=== PATIENT | male | born 1950 | race Caucasian/White ===

== ENCOUNTER → 2020-02-17 11:16 | Outpatient (BNVA) | payer OTHER, MEDICARE, SELFPAY | PROVIDERS: Visit Provider Nurse Practitioner Family | DX: N41.0 Acute prostatitis (principal); M54.9 Dorsalgia, unspecified | CPT/HCPCS: 81000 ==

== ENCOUNTER 2020-02-25 18:08 | Inpatient (IN) | payer OTHER, MEDICARE, SELFPAY ==
[2020-02-25 18:14] VITALS: BMI 19.8
[2020-02-25 18:20] VITALS: BP 133/97; PULSE 102; RESP 18; TEMP 38.4; O2SAT 95
--- NOTE | 2020-02-25 18:31 | XRR_ITS ---
PROCEDURE INFORMATION: Exam: XR Chest, 1 View Exam date and time: 02/25/2020 6:52 PM Age: 69 years old Clinical indication: Cough and fever; Additional info: Fever, cough TECHNIQUE: Imaging protocol: XR of the chest Views: 1 view. COMPARISON: No relevant prior studies available. FINDINGS: Lungs: Hyperinflation. Pleural space: Areas of pleural parenchymal scarring or atelectasis in the lower lungs. No large volume effusion. Heart/Mediastinum: Normal heart size. Vasculature: Tortuous ectatic partially calcified thoracic aorta. Bones/joints: Unremarkable. Soft tissues: Likely skin fold overlies the upper right chest on image 1 of 2. XR/XR chest 1V portable [id number] IMPRESSION: 1. Areas of pleural parenchymal scarring lower lungs. 2. Hyperinflation. 3. Dilated thoracic aorta. See dictation of recent CT chest.
[2020-02-25 18:32] VITALS: O2SAT 95
[2020-02-25] MEDS: sodium chloride 0.9% 1,000 ML 999 ML IV (18:53)
[2020-02-25 18:54] VITALS: BP 133/86; PULSE 103; RESP 16; O2SAT 96
[2020-02-25 18:57] LABS: Basophils # 0.1 10^3/uL (0.0-0.1); Basophils % 0.4 %; Eosinophils % 0.1 %; Hematocrit 40.4 % (42.0-52.0); Lymphocytes # 2.5 10^3/uL (0.8-4.8); Lymphocytes % 16.8 %; Mean Corpuscular HGB Conc 34.7 g/dL (30.0-36.0); Mean Corpuscular Hemoglobin 30.2 pg (28.0-34.0); Mean Corpuscular Volume 87.3 fL (80-94); Mean Platelet Volume 8.7 fL (7.4-10.4); Monocytes % 6.7 %; Neutrophils # 11.1 10^3/uL (1.8-7.7); Neutrophils % 74.1 %; Nucleated Red Blood Cells % 0 %; Platelet Count 509 10^3/cmm (130-400); Red Blood Count 4.63 10^6/uL (4.1-5.3); Red Cell Distribution Width 14.8 % (12.1-15.1)
[2020-02-25 19:04] LABS: Add Urine Microscopic? YES; Bilirubin Urine Neg (NEGATIVE); Blood Urine 2+ (Negative); Glucose Urine UA Norm (Normal); Ketones Urine 1+ (Negative); Leukocyte Esterase Urine Negative (Negative); Nitrate Urine Negative (Negative); Protein Urine Trace (Negative); Urine Appearance SL Hazy (CLEAR); Urine Color Yellow (Yellow); Urobilinogen Urine Norm (Negative); pH Urine 5 (5-7)
[2020-02-25 19:10] LABS: Bacteria Urine 1+; Mucus Urine 2+; Squamous Epithelial Cell Urine RARE (0-5)
[2020-02-25 19:11] LABS: Add Urine Culture? No
[2020-02-25 19:12] LABS: Lactate (Lactic Acid level) 1.6 mmol/L (0.5-2.2)
[2020-02-25 19:20] LABS: Procalcitonin 0.59 ng/mL (0-0.5)
[2020-02-25 19:32] LABS: Alanine Aminotransferase 138 U/L (0-41); Albumin Level 4.1 g/dL (3.5-5.2); Alkaline Phosphatase 114 IU/L (40-130); Anion Gap 21.2 (5-19); Aspartate Amino Transferase 77 U/L (0-40); Blood Urea Nitrogen 15 mg/dL (8-23); C Reactive Protein 80.6 mg/L (0.0-4.9); Calcium 8.8 mg/dL (8.5-10.5); Carbon Dioxide 20 mmol/L (22-29); Chloride 92 mmol/L (98-107); Creatine Phosphokinase 26 U/L (39-308); Globulin 3.3 g/dL (1.3-4.6); Glomerular Filtration Rate 66.4 mL/min (90-130); Glucose 140 mg/dL (65-115); Osmolality Calculated 267 mOsm/kg (285-295); Potassium 4.2 mmol/L (3.5-5.1); Sodium 129 mmol/L (136-145); Total Bilirubin 0.6 mg/dL (0.15-1.2); Total Protein 7.4 g/dL (6.6-8.7)
--- NOTE | 2020-02-25 19:33 | CTR_ITS ---
PROCEDURE INFORMATION: Exam: CT Chest With Contrast Exam date and time: 02/25/2020 8:11 PM Age: 69 years old Clinical indication: Patient HX: Weight loss with fever and loss of appetite; Additional info: Fever, mass TECHNIQUE: Imaging protocol: Computed tomography of the chest with intravenous contrast. Radiation optimization: All CT scans at this facility use at least one of these dose optimization techniques: automated exposure control; mA and/or kV adjustment per patient size (includes targeted exams where dose is matched to clinical indication); or iterative reconstruction. Contrast material: OMNI 300; Contrast volume: 95 ml; Contrast route: INTRAVENOUS (IV); COMPARISON: CR XR chest 1V portable [id number] 02/25/2020 6:40 PM RADIATION DOSE METRICS: Total DLP (mGy-cm): 944.32 FINDINGS: Lungs: Mild centrilobular emphysema. COPD/chronic bronchitis. No visible active interstitial or alveolar airspace disease. Mild parenchymal scar lung bases. Pleural space: Unremarkable. No pneumothorax. No pleural effusion. Heart: Unremarkable. No cardiomegaly. No pericardial effusion. Aorta: Mild fusiform aneurysmal dilatation of the aortic arch maximum AP diameter of the lumen 44 mm. No visible intimal flap or dissection. Mild arterial sclerosis. Lymph nodes: Unremarkable. No enlarged lymph nodes. Bones/joints: Degenerative disease and degenerative disc disease of the spine. No visible osteolytic or osteoblastic destructive process. No visible acute osseous abnormality. Soft tissues: Unremarkable. IMPRESSION: 1. No visible evidence of acute cardiopulmonary/cardiothoracic pathologic process. 2. Nonurgent, nonemergent, chronic, and age related findings as detailed in text above. PROCEDURE INFORMATION: Exam: CT Abdomen And Pelvis With Contrast Exam date and time: 02/25/2020 8:11 PM Age: 69 years old Clinical indication: Patient HX: Weight loss with fever and loss of appetite; Additional info: Fever, mass TECHNIQUE: Imaging protocol: Computed tomography of the abdomen and pelvis with intravenous contrast. Radiation optimization: All CT scans at this facility use at least one of these dose optimization techniques: automated exposure control; mA and/or kV adjustment per patient size (includes targeted exams where dose is matched to clinical indication); or iterative reconstruction. Contrast material: OMNI 300; Contrast volume: 95 ml; Contrast route: INTRAVENOUS (IV); COMPARISON: CR XR chest 1V portable [id number] 02/25/2020 6:40 PM RADIATION DOSE METRICS: Total DLP (mGy-cm): 944.32 FINDINGS: Liver: Several small hepatic cysts the largest measuring approximately 12 mm. Also suspected cavernous hemangioma inferior segment right hepatic lobe measuring 30 mm in maximum diameter. Confirmation could be performed with either three-phase computed tomography of the liver or MRI of the liver. Gallbladder and bile ducts: Normal. No calcified stones. No ductal dilation. Pancreas: Normal. No ductal dilation. 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 Please review past surgical history. Adrenals: Normal. No mass. Kidneys and ureters: Simple renal cortical cysts the largest inferior pole right kidney maximum AP diameter 62 mm. Small simple hemorrhagic cyst left kidney. No follow-up recommended. No follow-up recommended. No hydronephrosis or perinephric fluid. Stomach and bowel: Diverticulosis coli, primarily the sigmoid colon, without evidence for diverticulitis. Anastomotic bowel sutures and surgical clips right lower quadrant. Suspected partial right hemicolectomy. Nonobstructive bowel pattern. No visible adynamic or reactive ileus. Appendix: No evidence of appendicitis. Intraperitoneal space: Unremarkable. No free air. No significant fluid collection. Vasculature: The abdominal aorta is nonaneurysmal. Moderate arterial sclerotic disease. Lymph nodes: Unremarkable. No enlarged lymph nodes. Bladder: Unremarkable as visualized. Reproductive: Prostate hypertrophy. Bones/joints: Degenerative disc disease of the spine most advanced L4/L5 and L5/S1. Facet arthrosis. No visible acute osseous abnormality. No visible osteolytic or osteoblastic destructive process. Scoliosis. Soft tissues: Unremarkable. CT/CT chest abd pel w con* IMPRESSION: 1. No visible evidence of acute abdominal or pelvic pathologic process. 2. Suspected cavernous hemangioma inferior segment right hepatic lobe measuring 30 mm in maximum diameter. Confirmation could be performed with either three-phase computed tomography of the liver or MRI of the liver. 3. Simple renal cortical cysts. No follow-up recommended. 4. Diverticulosis coli without evidence for diverticulitis. 5. Other nonurgent, nonemergent, chronic, and age related findings as detailed in text above. COMMENTS: Consistent with the [employer]'s Incidental Findings Committee white paper (J Am Shaneka Radiol 2018): Any incidental renal lesion less than 1.0 cm or classified as too small to characterize, or any incidental cystic renal lesion characterized as simple-appearing, is likely benign. No follow-up imaging is recommended for these lesions per consensus recommendations based on imaging criteria. Radiation Dose CTDIVOL = (mGy): DLP = 944.32~944.32 (mGy-cm)
[2020-02-25] MEDS: iohexol 300 mg/mL 100 mL Btl IV (20:55)
[2020-02-25 21:16] VITALS: BP 112/78; PULSE 104; RESP 18; O2SAT 98
[2020-02-25 22:05] VITALS: BP 131/80; PULSE 105; RESP 22; O2SAT 96
[2020-02-25] MEDS: acetaminophen 500 mg Tablet 1000 MG PO (22:18)
--- NOTE | 2020-02-25 22:49 | PM.HP ---
Providers/Chief Complaint Chief Complaint: fever/cough History of Present Illness Nick Alatorre is a 69 year old male carries history of hypopharyngeal mass, thyroid nodule, degenerative joint disease of cervical spine came in with chief complaint of fever and night sweats. Patient lives alone, smokes pot occasionally, he was in his usual state of health until few weeks ago he started experiencing fever, chills, night sweats, he has lost 15 pounds in 3 weeks, he has been seen in urgent care twice, at the urgent care he was afebrile, urinalysis showed mild pyuria and he was started on antibiotics for possible prostatitis, his symptoms persisted, on second present to the urgent care he was started on Bactrim, he ran out of Bactrim prescription & [facility] prescribed c[facility]fl[facility]. Unfortunately his symptoms persistent, sometimes at night he has to wake up to change his clothes, he is endorsing anorexia, weight loss, profuse sweating. He is a , has no family, lives alone. He is turning that he was biopsied for his thyroid and submandibular mass, he was told that everything was benign, he has submandibular duct stone as well. He has not been noticing any dysphagia, orthopnea, PND, shortness of breath, chest pain, headache or dysuria. He has chronic neck pain which he thinks has not aggravated from his baseline Diagnosis in the urine revealed fever of 101.1, tachycardia, tachypnea, leukocytosis, normal lactic acid, CT chest abdomen pelvis did not reveal any acute pathology, I have requested CT neck and head Will rule out COVID Will obtain lumbar puncture, Dr. Avery obtained CSF studies in the ER, Review of Systems Const: Reports: fever(s), chills, body aches, change in appetite, change in weight, fatigue, malaise, night sweats, diaphoresis and change in sleep pattern; Denies: snoring Eyes: Reports: eye redness ENMT: Denies: throat pain, mouth pain or oral sores Card: Denies: chest pain or swelling of feet/ankles Resp: Denies: dyspnea GI: Denies: abdominal pain, nausea or vomiting : Denies: flank pain or urinary frequency Musc: Reports: neck pain Skin/Breast: Denies: rash Neuro: Denies: headache(s) Psych: Denies: anxiety Endo: Denies: polyuria Mateusz/Lymph: Denies: easy bruising All/Imm: Denies: urticaria Medications/Allergies Home Medications Medication Instructions Recorded Confirmed Last Taken Type aspirin 325 mg tablet 325 mg PO BID PRN 02/17/20 02/25/20 Unknown History sulfamethoxazole 800 1 tab PO BID 14 Days #28 tab 02/17/20 02/24/20 Unknown Rx mg-trimethoprim 160 mg tablet Allergies Allergy/AdvReac Type Severity Reaction Status Date / Time No Known Allergies Allergy Verified 02/24/20 09:56 PFSH Acute PFSH: Medical History (Updated 02/25/20 @ 23:42 by Marjorie Andrade MD) Aortic aneurysm 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 Arthritis COPD (chronic obstructive pulmonary disease) Degenerative disc disease C3-C6 spondylitic changes Hypopharyngeal mass Right lingular 5 mm cystic nodule near superior hypopharynx Salivary gland calculus Tetrahydrocannabinol (THC) use disorder, mild, abuse Thyroid nodule 9 and 11 mm thyroid nodules Surgical History (Updated 02/25/20 @ 23:53 by Marjorie Andrade MD) H/O removal of cyst History of appendectomy S/P thyroid biopsy Family History (Updated 02/25/20 @ 23:42 by Marjorie Andrade MD) Denies family history of CAD (coronary artery disease) Chronic kidney disease (CKD) Cancer Social History (Updated 02/25/20 @ 23:43 by Marjorie Andrade MD) Smoking and tobacco status: never smoked Alcohol intake: never Substance/Drug Use: current Substance/Drug use type: Marijuana Vitals/I&O/Wt Last Vital Signs Temp 101.1 F H 02/25/20 18:20 Pulse 105 H 02/25/20 22:05 Resp 22 H 02/25/20 22:05 BP 131/80 02/25/20 22:05 Pulse Ox 96 02/25/20 22:05 02/25/20 02/25/20 02/25/20 06:59 14:59 22:59 Intake Total 1000 / 1000 Balance 1000 / 1000 Weight last 48 hrs Weight 62.596 kg Physical Exam Narrative: EXAM NARRATIVE: Head to toe examination Patient laying comfortably in his bed Experiencing profuse diaphoresis Hyperemic conjunctivo-bilaterally No Kernig's or Brudzinski sign No meningeal sign Right submandibular cyst, nontender Thyroid nodule, nontender S1, S2 sinus tachycardia no sign of heart failure Abdomen soft nontender nondistended, Lower extremity no signs of edema gangrene ulcer Neurologically nonfocal exam Appropriate mood and affect EOMI, PERRLA AOx3 Data : 02/25/20 18:48 02/25/20 18:48 Micro: Microbiology 02/25/20 18:50 Blood Culture - Preliminary Blood SPECIMEN COLLECTED 02/25/20 18:48 Blood Culture - Preliminary Blood SPECIMEN COLLECTED A&P Assessment and plan (1) Sepsis: Status: Acute (2) Night sweats: Status: Acute (3) Anorexia: Status: Acute (4) Unintentional weight loss: Status: Acute (5) Hepatic cyst: Status: Acute Additional A&P Information Sepsis Source unidentified Previous history of hypopharyngeal mass Patient has 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 Anorexia, fever, night sweats, weight loss We will request records from [place] for thyroid and hypopharyngeal mass biopsy I am obtaining CT neck and CT head before doing lumbar puncture We will start him on broad-spectrum antibiotics and rule out covid Normal saline fluid resuscitation Will admit to [facility] Hepatic cyst I would not obtain MRI at this point Patient has 2 dogs at home, my differential would include hemangioma versus hydatid cyst Diverticulosis without diverticulitis No recent diarrhea or bright bleed per rectum Abdomen is soft Marijuana abuse Patient was counseled regarding complications and side effects of marijuana abuse Full code Regular diet DVT prophylaxis to be started about 8 to 10 hours after lumbar puncture Attestations Medical Necessity Statement*: Anticipating stay in the hospital cross more than 2 midnights currently needs broad-spectrum antibiotics for sepsis, Time Spent in Patient Care: (>than 50% of time spent in counselling and/or direct pt care on unit). 60mins Coding Level of Care Code Acute Neuropsychology Medical Consultant for Chg Fwd Diagnoses Sepsis A41.9 Night sweats R61 Anorexia R63.0 Unintentional weight loss R63.4 Hepatic cyst K76.89
--- NOTE | 2020-02-25 23:06 | CTR_ITS ---
PROCEDURE INFORMATION: Exam: CT Neck With Contrast Exam date and time: 02/25/2020 11:08 PM Age: 69 years old Clinical indication: Abnormal findings; Abnormal radiologic study of neck; Additional info: Hypopharyngeal mass TECHNIQUE: Imaging protocol: Computed tomography images of the neck with intravenous contrast. Radiation optimization: All CT scans at this facility use at least one of these dose optimization techniques: automated exposure control; mA and/or kV adjustment per patient size (includes targeted exams where dose is matched to clinical indication); or iterative reconstruction. Contrast material: VISI; Contrast volume: 95 ml; Contrast route: INTRAVENOUS (IV); COMPARISON: CT neck w con* [id number] 07/25/2019 8:49 AM RADIATION DOSE METRICS: Total DLP (mGy-cm): 616.98 FINDINGS: Brain: Potential left cerebellar hemisphere venous angioma/venous malformation. Nasopharynx: Unremarkable. Oropharynx: Markedly enlarged lingual tonsils. The right lingual tonsil measures approximately 27 mm x 23 mm and merges with the left which measures 22 mm x 19 mm. Concern for lingual carcinoma. [place] and pharyngeal tonsils appear unremarkable. Hypopharynx: Unremarkable. Larynx: Epiglottis appears normal. Larynx appears normal. Retropharyngeal space: Unremarkable. Submandibular/Parotid glands: Parotid and submandibular glands appear unremarkable. Thyroid: Visualized portions of the thyroid normal. Lymph nodes: Currently no visible evidence for active lymphadenopathy. Trachea: Visualized trachea is unremarkable. Lungs: Mild centrilobular emphysema. Small approximately 4 mm subpleural pulmonary nodule right upper lobe series 3, image 88. Bones/joints: Advanced degenerative disease and degenerative disc disease of the cervical spine again evident. Vasculature: Stable fusiform aneurysmal dilatation of the thoracic aortic arch. No visible intimal flap or dissection. Moderate arterial sclerotic disease. No visible carotid stenosis. Soft tissues: Age-appropriate. CT/CT neck w con* [id number] IMPRESSION: 1. Markedly enlarged lingual tonsils and cannot exclude lingual cancer. Recommend direct visualization. 2. Potential left cerebellar hemisphere venous angioma/venous malformation. 3. Mild centrilobular emphysema. 4. Small right upper lobe 4 mm subpleural pulmonary nodule. For patients at low risk (minimal or absent history of smoking and of other known risk factors), no routine follow-up is indicated. For patients at high risk (history of smoking or of other known risk factors), consider optional CT at 12 months. (Joaquina et al., Fleischner Society, 2017). Radiation Dose CTDIVOL = (mGy): DLP = 616.98 (mGy-cm)
--- NOTE | 2020-02-25 23:25 | CTR_ITS ---
PROCEDURE INFORMATION: Exam: CT Head Without Contrast Exam date and time: 02/25/2020 11:41 PM Age: 69 years old Clinical indication: Pain; Headache not specified TECHNIQUE: Imaging protocol: Computed tomography of the head without contrast. Radiation optimization: All CT scans at this facility use at least one of these dose optimization techniques: automated exposure control; mA and/or kV adjustment per patient size (includes targeted exams where dose is matched to clinical indication); or iterative reconstruction. COMPARISON: No relevant prior studies available. RADIATION DOSE METRICS: Total DLP (mGy-cm): 852.62 FINDINGS: Brain: Potential petechial hemorrhage left cerebellar hemisphere measuring a maximum diameter 6 mm. No associated surrounding edema visible. Bilateral cerebral hemisphere multifocal areas of demyelination. Also findings suggesting associated small vessel ischemic disease. Cerebral atrophic changes greater than that anticipated for patient's chronological age. Ventricles: No ventriculomegaly. Bones/joints: Unremarkable. No acute fracture. Sinuses: Visualized sinuses are unremarkable. No fluid levels. Mastoid air cells: Visualized mastoid air cells are well aerated. Vasculature: Cerebral arterial sclerosis. Soft tissues: Unremarkable. CT/CT head wo con* [id number] IMPRESSION: 1. Potential petechial hemorrhage left cerebellar hemisphere. 2. Bilateral cerebral hemisphere multifocal areas of demyelination. 3. Suspected small vessel ischemic disease. 4. Cerebral atrophic changes greater than that anticipated for patient's chronological age. 5. Recommend MRI of the brain for follow-up evaluation. Radiation Dose CTDIVOL = (mGy): DLP = 852.62 (mGy-cm)
[2020-02-25] MEDS: iodixanol 320 mg/mL 100mL Btl IV (23:47)
[2020-02-26] VITALS (70 sets, daily range): BP systolic 102–128; BP diastolic 68–87; PULSE 88–128; RESP 7–36; TEMP 37.1–38.3; O2SAT 4–97
[2020-02-26] MEDS: midazolam 1 mg/mL INJ 2 mL 2 MG IVP (00:05)
[2020-02-26] MEDS: lidocaine 1% INJ 20 mL INJECTION (00:11)
--- NOTE | 2020-02-26 01:07 | PM.EVENT ---
Event Note Event Note: CT head is showing multifocal areas of demyelination with possible petechial hemorrhage of left cerebellar area Patient is status post lumbar puncture done by Dr. Avery in the ER Contraindicated anticoagulation until hemorrhage ruled out, will obtain MRI in the morning CT neck is showing increased dimension of lingual tonsils My concern for noninfectious cause of this febrile episode is high considering increased dimensions of lingual tonsils, with B-cell symptom, will follow up with biopsy results
[2020-02-26 01:18] LABS: CSF Mononuclear # 0.001 10^3/uL (50-90); Mononuclear WBC CSF % 50 % (50-90); Polynuclear Cells ,CSF # 0.001 10^3/uL (0-10); Polynuclear WBC CSF % 50 % (0-10); Red Blood Cell CSF 0 10^3/uL (0-0); White Blood Cell CSF 2 /uL (0-5)
[2020-02-26 01:22] LABS: Appearance CSF CLEAR (CLEAR); Color CSF COLORLESS (COLORLESS)
[2020-02-26 01:23] LABS: Pathology Referral Yes
[2020-02-26 01:30] LABS: Glucose CSF 72 mg/dL (40-70); Total Protein CSF 32 mg/dL (15-45)
--- NOTE | 2020-02-26 03:08 | PC.PHAR ---
Vancomycin is dosed at 1500mg IVPB ever 24 hours to produce a predicted trough level of 14.54 (population based pharmacokinetic analysis). A trough level has been ordered from the lab to be obtained before the fourth dose to confirm and adjust if needed. Zosyn is dosed at 3.375gm IVPB ever 8 hours based on creatinine clearance of 61.7112. Each dose is to be infused over four hours per extended infusion protocol.
[2020-02-26] MEDS: piperacillin-tazobactam 3.375 GM in sodium chloride 0.9% (plus) 50 ML IV ×3 (03:45→18:31)
[2020-02-26] MEDS: sodium chloride 0.9% 1,000 ML 75 ML IV ×2 (03:45→16:43)
[2020-02-26] MEDS: acetaminophen 325 mg Tablet 650 MG PO ×3 (03:54→19:55)
--- NOTE | 2020-02-26 03:57 | PC.NURSE ---
fever/chills pt started chilling, temp checked 100.9 oral. 650mg tylenol given at this time.
[2020-02-26 04:56] LABS: Basophils # 0.1 10^3/uL (0.0-0.1); Basophils % 0.4 %; Eosinophils % 0.1 %; Hematocrit 39.2 % (42.0-52.0); Hemoglobin 13.6 g/dL (11.7-16.6); Lymphocytes % 24.8 %; Mean Corpuscular HGB Conc 34.7 g/dL (30.0-36.0); Mean Corpuscular Hemoglobin 31.1 pg (28.0-34.0); Mean Corpuscular Volume 89.5 fL (80-94); Mean Platelet Volume 9.7 fL (7.4-10.4); Monocytes % 6.1 %; Neutrophils # 10.7 10^3/uL (1.8-7.7); Neutrophils % 66.5 %; Nucleated Red Blood Cells % 0 %; Platelet Count 487 10^3/cmm (130-400); Red Blood Count 4.38 10^6/uL (4.1-5.3); Red Cell Distribution Width 14.9 % (12.1-15.1)
[2020-02-26 05:20] LABS: Alanine Aminotransferase 121 U/L (0-41); Albumin Level 3.5 g/dL (3.5-5.2); Alkaline Phosphatase 111 IU/L (40-130); Anion Gap 20.4 (5-19); Aspartate Amino Transferase 62 U/L (0-40); Blood Urea Nitrogen 14 mg/dL (8-23); Calcium 8.3 mg/dL (8.5-10.5); Carbon Dioxide 21 mmol/L (22-29); Chloride 94 mmol/L (98-107); Globulin 3.3 g/dL (1.3-4.6); Glomerular Filtration Rate 74.1 mL/min (90-130); Glucose 126 mg/dL (65-115); Osmolality Calculated 270 mOsm/kg (285-295); Potassium 4.4 mmol/L (3.5-5.1); Sodium 131 mmol/L (136-145); Total Bilirubin 0.5 mg/dL (0.15-1.2); Total Protein 6.8 g/dL (6.6-8.7)
--- NOTE | 2020-02-26 10:26 | P.PN_ITS ---
Subjective Subjective: Interval history: Chart reviewed, febrile with Tmax-101.1 F, mild tachycardia, tachypnea, normotensive. Noted imaging findings. On isolation precautions pending COVID-19 test results. On dual antibiotics with Vanc/Zosyn. He is quite ill-appearing, is anxious and quite concerned about why he is so ill. Quite emotional during my encounter with him this morning. Medications: Reviewed: Yes Medication Review Details: Active Medications Generic Name Dose Route Start Last Admin Trade Name Freq PRN Reason Stop Dose Admin Acetaminophen 650 mg 02/26/20 02:47 02/26/20 03:54 Tylenol PO 650 mg Q4H PRN Administration FEVER Vancomycin HCl 1,5 00 mg/ 250 mls @ 250 mls /hr 02/26/20 07:00 02/26/20 06:50 Sodium Chloride IV 250 mls/hr Q24H DYAN Administration Protocol As Directed Piperacillin Sod/T azobactam 50 mls @ 12.5 mls /hr 02/26/20 03:00 02/26/20 03:45 Sod 3.375 gm/ So dium Chloride IV 12.5 mls/hr Q8H DYAN Administration Protocol As Directed Sodium Chloride 1,000 mls @ 75 ml s/hr 02/26/20 02:47 02/26/20 03:45 Sodium Chloride 0.9% IV 75 mls/hr .[id number] DYAN Administration Ondansetron HCl 4 mg 02/26/20 02:47 Zofran IVP Q6H PRN NAUSEA AND VOMITI NG No Known Allergies Allergy (Verified 02/24/20 09:56) Vitals/I&O/Wt Last Vital Signs Temp 100.9 F H 02/26/20 04:00 Pulse 95 02/26/20 04:00 Resp 19 H 02/26/20 04:00 BP 119/86 02/26/20 04:00 Pulse Ox 96 02/26/20 04:00 02/25/20 02/26/20 02/26/20 22:59 06:59 14:59 Intake Total 1000 / 1000 600 / 1600 Output Total 200 / 200 Balance 1000 / 1000 400 / 1400 Weight last 48 hrs Weight 62.596 kg Physical Exam Const: COMMON NORMALS: no acute distress, patient oriented x3 and alert GENERAL APPEARANCE: cooperative, comfortable, ill appearing and frail appearing NUTRITIONAL APPEARANCE: thin ORIENTATION/CONSCIOUSNESS: Yes awake HENMT: COMMON NORMALS: normocephalic, atraumatic, hearing grossly normal bilaterally and moist oral mucous membranes HEAD & SCALP: normocephalic and atraumatic Eye: COMMON NORMALS: Equal, round and reactive pupils present, EOMs intact b ilaterally and conjunctivae normal CONJUNCTIVA: Yes conjunctivae normal PUPIL: Yes Equal, round and reactive pupils present Neck/C-Spine: COMMON NORMALS: full ROM GENERAL: Yes normal visual ins pection and Yes trachea midline Resp: COMMON NORMALS: normal respiratory effort, No retractions and No use of accessory muscles EFFORT & INSPECTION: Yes able to speak in complete sentences, Yes symmetric chest movement and No tachypneic AUSCULTATION: diminished lung sounds Cardio: COMMON NORMALS: regular rate, regular rhythm, S1 normal heart sound present, S2 normal heart sound present and No murmurs present (Cardio) RATE: regular rate RHYTHM: regular rhythm HEART SOUNDS: S1 normal heart sound present and S2 normal heart sound present GI: COMMON NORMALS: Normal to inspection, nondistended, normoactive bowel sounds present, Soft to palpation and non-tender PALPATION: Yes Soft to palpation Extremity: COMMON NORMALS: normal to inspection, full ROM and no clubbing, cyanosis or edema; negative for no pedal edema Neuro: COMMON NORMALS: patient oriented x3, moves all extremities, no focal motor deficits, no sensory deficits noted and gait normal SENSORIUM/ORIENTATION: Yes alert Psych: COMMON NORMALS: mental status grossly normal, Normal thought process present, cooperative, normal affect and speech normal SPEECH: Yes normal speech THOUGHT PROCESS: Normal thought process present Skin: COMMON NORMALS: no rashes or lesions noted, no jaundice, no petechiae and no mottling GENERAL SKIN EXAM: no rashes or lesions noted Data : 02/26/20 04:06 02/26/20 04:06 Micro: Microbiology 02/26/20 01:00 Gram Stain - Final Cerebrospinal Fluid 02/25/20 18:50 Blood Culture - Preliminary Blood SPECIMEN COLLECTED 02/25/20 18:48 Blood Culture - Preliminary Blood SPECIMEN COLLECTED A&P Assessment and plan (1) Sepsis: -As evidenced by leukocytosis, fever, tachypnea, tachycardia. Etiology is currently unclear but clinical findings suspicious for possible underlying malignancy rather than infection -Urinalysis not indicative of infection, chest x-ray and CT chest not indicative of focal consolidation, status post lumbar puncture, CSF analysis noted and not overtly indicative of infection, culture pending, gram stain negative -f/u blood cx -Continue broad-spectrum antibiotic coverage with vancomycin and Zosyn -continue to trend WBC -noted pro-calcitonin elevation (0.59), lactic acid-1.6 -close monitoring of vital signs -COVID-19 test results pending; continue isolation precautions -noted imaging with noted markedly enlarged lingular tonsils concerning for possible lingular cancer; may need ENT evaluation for possible biopsy -Noted CT head findings including petechial hemorrhage of the left cerebellar hemisphere and areas of demyelination. Order MRI for further evaluation -Patient has a known history of hypopharyngeal mass and thyroid nodule. 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 Status: Chronic Qualifiers: Aortic location: thoracic aorta Presence of rupture: without rupture Qualified Code(s): I71.2 - Thoracic aortic aneurysm, without rupture (4) Arthritis: -pain control as needed Status: Chronic (5) COPD (chronic obstructive pulmonary disease): -no evidence of acute exacerbation currently -continue to monitor respiratory status -supplemental oxygen as needed Status: Chronic Qualifiers: COPD type: unspecified COPD Qualified Code(s): J44.9 - Chronic obstructive pulmonary disease, unspecified Additional A&P Information -regular diet as tolerated -DVT ppx with SCDs due to noted evidence of petechial hemorrhage on CT -fall precautions -hx of THC use -Dispo: home -Code status: FULL code Attestations Medical Necessity Statement*: Patient requires hospitalization for continued management of sepsis, pending etiology and further work-up including MRI head, on broad-spectrum IV antibiotic coverage, on isolation precautions pending COVID-19 test results. Time Spent in Patient Care: Greater than 35 minutes (>than 50% of time spent in counselling and/or direct pt care on unit) . Coding Level of Care Code Acute Program Manager Transportation for Chg Fwd Exam Comprehensive Diagnoses Sepsis A41.9 Sepsis acute organ dysfunction status: without acute organ dysfunction Sepsis type: sepsis due to unspecified organism Degenerative disc disease M51.37 Spinal region: lumbosacral Aortic aneurysm I71.2 Aortic location: thoracic aorta Presence of rupture: without rupture Arthritis M19.90 COPD (chronic obstructive pulmonary disease) J44.9 COPD type: unspecified COPD
[2020-02-26 14:42] LABS: Coronavirus Lab Test PTC SEE REPORT
--- NOTE | 2020-02-26 17:38 | ED_ITS ---
HPI - General Adult General: Chief complaint: General Medical Stated complaint: fever Time Seen by Provider: 02/25/20 18:23 History of Present Illness: HPI narrative: 69-year-old male presents with fever, weight loss, anorexia and body aches for the last 3 weeks or so. He has been treated with multiple antibiotics including ciprofloxacin and Bactrim. He been treated for 14 days with assumed prostatitis at one point. He continues to have night sweats and run fevers. He is achy all over. He is generally weak. He presents with a fever this evening. Onset (ago): week(s) Location: back, upper extremity and lower extremity Radiation: non-radiation Severity: moderate Quality: aching Pain Consistency: constant Relieving factors: none Associated symptoms: Reports fevers/chills, headache(s), malaise and weakness; Deny chest pain, cough, dyspnea, nausea, rash, short of breath or vomiting Review of Systems Const: Reports: malaise Eyes: Denies: change in vision or blurry vision ENMT: Denies: swelling of lips/tongue, change in hearing, epistaxis, post nasal drip or sinus pain Card: Denies: chest pain Resp: Denies: dyspnea GI: Denies: abdominal pain, nausea, vomiting, rectal pain or melena : Denies: difficulty urinating, dysuria, urinary frequency, urinary urgency or hematuria Musc: Reports: neck pain and back pain; Denies: joint redness or joint warmth Skin/Breast: Denies: rash, pruritus or erythema Neuro: Reports: headache(s) Psych: Denies: anxiety PFSH ED PFSH: Medical History (Updated 02/26/20 @ 17:44 by Edi Avery DO) Aortic aneurysm 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 Arthritis COPD (chronic obstructive pulmonary disease) Degenerative disc disease C3-C6 spondylitic changes Hypopharyngeal mass Right lingular 5 mm cystic nodule near superior hypopharynx Salivary gland calculus Tetrahydrocannabinol (THC) use disorder, mild, abuse Thyroid nodule 9 and 11 mm thyroid nodules Surgical History (Updated 02/25/20 @ 23:53 by Marjorie Andrade MD) H/O removal of cyst History of appendectomy S/P thyroid biopsy Family History (Updated 02/25/20 @ 23:42 by Marjorie Andrade MD) Denies family history of CAD (coronary artery disease) Chronic kidney disease (CKD) Cancer Social History (Updated 02/25/20 @ 23:43 by Marjorie Andrade MD) Smoking and tobacco status: never smoked Alcohol intake: never Substance/Drug Use: current Substance/Drug use type: Marijuana Physical Exam Const: GENERAL APPEARANCE: well developed ORIENTATION/CONSCIOUSNESS: Yes oriented to person, Yes oriented to place and Yes oriented to time HENMT: COMMON NORMALS: normocephalic, external ears normal and Normal external nose present HEAD & SCALP: normocephalic FACE & SINUS: normal facial exam NOSE: Normal external nose present and No nasal discharge present EXTERNAL EAR: Yes external ears normal MOUTH: tongue normal THROAT: posterior oropharynx normal; no peritonsillar mass Eye: COMMON NORMALS: Equal, round and reactive pupils present, EOMs intact bilaterally and conjunctivae normal EYELID: eyelids normal CONJUNCTIVA: Yes conjunctivae normal PUPIL: Yes Equal, round and reactive pupils present Neck/C-Spine: COMMON NORMALS: full ROM GENERAL: No tracheal deviation CERVICAL SPINE: No Cervical spine tenderness Chest: COMMONS NORMALS: normal inspection of the chest CHEST: No tenderness Resp: COMMON NORMALS: clear to auscultation bilaterally EFFORT & INSPECTION: No tachypneic, No respiratory distress, No retractions, No uses accessory muscles and No tracheal deviation AUSCULTATION: clear to auscultation bilaterally, no rhonchi, no wheezes and lung sounds not diminished Cardio: COMMON NORMALS: regular rate and regular rhythm RATE: regular rate and tachycardic RHYTHM: regular rhythm HEART SOUNDS: no murmurs PERIPHERAL PULSES: radial pulses present GI: INSPECTION: No abdominal distension AUSCULTATION: No Hyperactive bowel sounds present and No Hypoactive bowel sounds present PALPATION: No Guarding due to palpation present (GI) and No Rigid due to palpation PERCUSSION: no dullness to percussion and no tympanic to percussion : COMMON NORMALS: Yes no CVA tenderness BLADDER/KIDNEY EXAM: Yes no CVA tenderness Back/Pelvis: COMMON NORMALS: no CVA tenderness Neuro: SENSORIUM/ORIENTATION: Yes oriented to person, Yes oriented to place and Yes oriented to time Psych: COMMON NORMALS: mental status grossly normal Skin: COMMON NORMALS: no rashes or lesions noted GENERAL SKIN EXAM: no rashes or lesions noted Course Vital Signs: Vital signs: Vital Signs Temperature 100.2 F H 02/26/20 12:00 Pulse Rate 96 02/26/20 16:00 Respiratory Rate 7 L 02/26/20 16:00 Blood Pressure 122/81 02/26/20 16:00 Pulse Oximetry 97 02/26/20 12:00 MDM - General Adult MDM Narrative: Medical decision making narrative: 69-year-old male with fever, anorexia, weight loss, chills and night sweats. His white blood cell count is 16. His bicarbonate level is 21. He is given a fluid bolus in the ER. His lactic acid is negative. Chest x-ray is equivocal, as there appeared to be a white fluffy infiltrate in the right lower lobe. However, it had regular borders. But, CT of the chest abdomen pelvis show no acute disease and no sign of infection. CT of the head shows some demyelinating lesions he does not have any meningeal signs at all, but without a source of the fever we were forced to consider lumbar puncture. This was performed without complication and is sent for culture along with blood cultures. He is also tested for COVID-19. With continued fevers and failure on multiple antibiotics as an outpatient, he will be admitted. Hospitalist agrees Lab Data: Labs: Lab Results 02/25/20 02/25/20 02/25/20 Range/Units 18:40 18:48 18:48 WBC 15.0 H (4.0-10.0) 10^3/ uL RBC 4.63 (4.1-5.3) 10^6/u L Hgb 14.0 (11.7-16.6) g/dL Hct 40.4 L (42.0-52.0) % MCV 87.3 (80-94) fL MCH 30.2 (28.0-34.0) pg MCHC 34.7 (30.0-36.0) g/dL RDW 14.8 (12.1-15.1) % Plt Count 509 H (130-400) 10^3/c mm MPV 8.7 (7.4-10.4) fL Neut % (Auto) 74.1 % Lymph % (Auto) 16.8 % [place] % (Auto) 6.7 % Eos % (Auto) 0.1 % Baso % (Auto) 0.4 % Neut # (Auto) 11.1 H (1.8-7.7) 10^3/u L Lymph # (Auto) 2.5 (0.8-4.8) 10^3/u L [place] # (Auto) 1.0 H (0.2-0.9) 10^3/u L Eos # (Auto) 0.0 (0.0-0.8) 10^3/u L Baso # (Auto) 0.1 (0.0-0.1) 10^3/u L Nucleated RBC % (a uto) 0 % Nucleated RBCs # 0.0 /100WBC Sodium 129 L (136-145) mmol/L Potassium 4.2 (3.5-5.1) mmol/L Chloride 92 L (98-107) mmol/L Carbon Dioxide 20 L (22-29) mmol/L Anion Gap 21.2 H (5-19) BUN 15 (8-23) mg/dL Creatinine 1.1 (0.7-1.2) mg/dL GFR Calculation 66.4 L (90-130) mL/min Glucose 140 H (65-115) mg/dL Calculated Osmolal ity 267 L (285-295) mOsm/k g Lactate (0.5-2.2) mmol/L Calcium 8.8 (8.5-10.5) mg/dL Total Bilirubin 0.6 (0.15-1.2) mg/dL AST 77 H (0-40) U/L ALT 138 H (0-41) U/L Alkaline Phosphata se 114 (40-130) IU/L Creatine Kinase 26 L (39-308) U/L C-Reactive Protein 80.6 H (0.0-4.9) mg/L Total Protein 7.4 (6.6-8.7) g/dL Albumin 4.1 (3.5-5.2) g/dL Globulin 3.3 (1.3-4.6) g/dL Procalcitonin 0.59 H (0-0.5) ng/mL Urine Color Yellow (Yellow) Urine Appearance Sl hazy (CLEAR) Urine pH 5 (5-7) Ur Specific Gravit y 1.020 (1.005-1.030) Urine Protein Trace (Negative) Urine Glucose (UA) Norm (Normal) Urine Ketones 1+ H (Negative) Urine Blood 2+ H (Negative) Urine Nitrate Negative (Negative) Urine Bilirubin Neg (NEGATIVE) Urine Urobilinogen Norm (Negative) mg/dL Ur Leukocyte Denise ase Negative (Negative) Urine RBC None (0-2) /hpf Urine WBC None (0-5) /hpf Ur Squamous Epith Cells Rare (0-5) Amorphous Sediment Not Reportable Urine Bacteria 1+ H (NONE) Urine Mucus 2+ 06/27/20 Range/Units 18:48 WBC (4.0-10.0) 10^3/ uL RBC (4.1-5.3) 10^6/u L Hgb (11.7-16.6) g/dL Hct (42.0-52.0) % MCV (80-94) fL MCH (28.0-34.0) pg MCHC (30.0-36.0) g/dL RDW (12.1-15.1) % Plt Count (130-400) 10^3/c mm MPV (7.4-10.4) fL Neut % (Auto) % Lymph % (Auto) % [place] % (Auto) % Eos % (Auto) % Baso % (Auto) % Neut # (Auto) (1.8-7.7) 10^3/u L Lymph # (Auto) (0.8-4.8) 10^3/u L [place] # (Auto) (0.2-0.9) 10^3/u L Eos # (Auto) (0.0-0.8) 10^3/u L Baso # (Auto) (0.0-0.1) 10^3/u L Nucleated RBC % (a uto) % Nucleated RBCs # /100WBC Sodium (136-145) mmol/L Potassium (3.5-5.1) mmol/L Chloride (98-107) mmol/L Carbon Dioxide (22-29) mmol/L Anion Gap (5-19) BUN (8-23) mg/dL Creatinine (0.7-1.2) mg/dL GFR Calculation (90-130) mL/min Glucose (65-115) mg/dL Calculated Osmolal ity (285-295) mOsm/k g Lactate 1.6 (0.5-2.2) mmol/L Calcium (8.5-10.5) mg/dL Total Bilirubin (0.15-1.2) mg/dL AST (0-40) U/L ALT (0-41) U/L Alkaline Phosphata se (40-130) IU/L Creatine Kinase (39-308) U/L C-Reactive Protein (0.0-4.9) mg/L Total Protein (6.6-8.7) g/dL Albumin (3.5-5.2) g/dL Globulin (1.3-4.6) g/dL Procalcitonin (0-0.5) ng/mL Urine Color (Yellow) Urine Appearance (CLEAR) Urine pH (5-7) Ur Specific Gravit y (1.005-1.030) Urine Protein (Negative) Urine Glucose (UA) (Normal) Urine Ketones (Negative) Urine Blood (Negative) Urine Nitrate (Negative) Urine Bilirubin (NEGATIVE) Urine Urobilinogen (Negative) mg/dL Ur Leukocyte Denise ase (Negative) Urine RBC (0-2) /hpf Urine WBC (0-5) /hpf Ur Squamous Epith Cells (0-5) Amorphous Sediment Urine Bacteria (NONE) Urine Mucus Discharge Plan Discharge Patient Disposition: Admitted As Inpatient Admit Provider: Marjorie Andrade Clinical Impression: Sepsis Qualifiers: Sepsis type: sepsis due to unspecified organism Sepsis acute organ dysfunction status: unspecified Qualified Code(s): A41.9 - Sepsis, unspecified organism Condition: Stable Discharge Date/Time: 02/26/20 02:13 Coding Level of Care Code ED Kettle Coordinator for [facility] Fwd Exam Comprehensive
--- NOTE | 2020-02-26 19:22 | PC.NURSE ---
Rounding: Patient resting in bed and is alert and oriented. Patient denies any needs at this time. Patient call light is within reach and bed in low position. Will continue to monitor.
[2020-02-27] VITALS (26 sets, daily range): BP systolic 98–134; BP diastolic 66–84; PULSE 77–189; RESP 11–32; TEMP 37–39.6; O2SAT 90–96
[2020-02-27] MEDS: acetaminophen 325 mg Tablet 650 MG PO ×4 (00:49→19:35)
[2020-02-27] MEDS: piperacillin-tazobactam 3.375 GM in sodium chloride 0.9% (plus) 50 ML IV ×3 (03:01→19:21)
[2020-02-27] MEDS: sodium chloride 0.9% 1,000 ML 75 ML IV ×2 (04:50→19:20)
[2020-02-27 05:01] LABS: Basophils # 0.1 10^3/uL (0.0-0.1); Basophils % 0.3 %; Eosinophils % 0.1 %; Hematocrit 35.7 % (42.0-52.0); Hemoglobin 12.5 g/dL (11.7-16.6); Lymphocytes # 2.5 10^3/uL (0.8-4.8); Mean Corpuscular Hemoglobin 30.7 pg (28.0-34.0); Mean Corpuscular Volume 87.7 fL (80-94); Monocytes # 0.5 10^3/uL (0.2-0.9); Monocytes % 2.8 %; Neutrophils # 13.1 10^3/uL (1.8-7.7); Nucleated Red Blood Cells % 0 %; Platelet Count 357 10^3/cmm (130-400); Positive M 1; Red Blood Count 4.07 10^6/uL (4.1-5.3); White Blood Count 16.6 10^3/uL (4.0-10.0)
[2020-02-27 05:24] LABS: Alanine Aminotransferase 140 U/L (0-41); Albumin Level 2.9 g/dL (3.5-5.2); Alkaline Phosphatase 110 IU/L (40-130); Anion Gap 17.6 (5-19); Aspartate Amino Transferase 78 U/L (0-40); Blood Urea Nitrogen 14 mg/dL (8-23); Calcium 7.5 mg/dL (8.5-10.5); Carbon Dioxide 19 mmol/L (22-29); Chloride 97 mmol/L (98-107); Globulin 2.4 g/dL (1.3-4.6); Glomerular Filtration Rate 83.7 mL/min (90-130); Glucose 144 mg/dL (65-115); Osmolality Calculated 269 mOsm/kg (285-295); Potassium 3.6 mmol/L (3.5-5.1); Sodium 130 mmol/L (136-145); Total Bilirubin 0.8 mg/dL (0.15-1.2); Total Protein 5.3 g/dL (6.6-8.7)
--- NOTE | 2020-02-27 05:46 | PC.NURSE ---
End of shift: Patient has been febrile on and off. Complaints of chills. Patient has had a linen change due to sweating. Vital signs are stable. Patient remains alert and oriented. PAtient call light is within reach and bed in low position. Will continue to monitor.
[2020-02-27 05:51] LABS: Slide Review Slide Review Perform
--- NOTE | 2020-02-27 07:54 | PC.NURSE ---
Pt looked sad and teary eyed when talking about his health. Pt stated he has lost appetite for 4 weeks since nothing is keeping it down. He has to chew long time before he can swallow the food. Denies any difficulty swallowing. Assessed his parotid glands and right parotid gland is larger and hard upon palpation than left parotid glad. Pt denies any pain or headaches. He states, I just don't feel good and they don't know anything yet what is going on with me. Reassured pt that we are trying to get some test such as MRI today as well as continuing his IV Antibiotics. Pt verbalizes understanding.
--- NOTE | 2020-02-27 09:59 | PC.CHAP ---
Pastoral Care Encounter/Spiritual Assessment Type of Contact [] Declined party plan sales consultant visit [] Patient/Family/Request visit [] Outpatient visit [] Follow-up visit [] Physician referral [] Code/Alert [x] Routine visit [] Staff referral [] Actively dying [] Patient sleeping [] Family support [] [] Out of room [] Palliative care [] [] Receiving care in room [] Pre-surgical visit [] Trauma [] Long length of stay [] ICU visit [] Other: Relational/Emotional Strength [] Patient feels connected with others/family/visitors/staff [] Distress [] Loneliness/isolation [] Abandonment Spirituality of Patient [] Person of Cece [] Attends Quaker of their Cece [] Believes in Prayer [] Reads Bible or Yarsani materials [] There are Spiritual issues to be addressed Jewel Bearing Polisher Interventions [x] Prayer [x] Active listening [x] Non-anxious presence [x] Spiritual/emotional support [] Crisis/trauma care [] Spiritual counseling [] Bereavement support [] Provided bereavement packet [] Provided Bible/devotional materials [] Provided toy/stuffed animal, coloring book to patient or family member [] Provided Communion [] Anointing/[place] [] Salvation [x] Completed spiritual assessment [] Other: Impact on Illness or Injury [] Angry [] Fearful [] Anxious [] Often cries [] Exhaustion [] Unable to work [] Unable to attend mu-ism [] Unable to walk/stand [] Unable to read [] Unable to drive [] Unable to eat/drink [] Unable to sleep [] Unable to be with family [] Patient intubated [] Other: Summary Patient feeling stronger Time spent with patient 10 min
--- NOTE | 2020-02-27 11:28 | PC.NURSE ---
Into room to assist with telemetry change. Rate increased to 180s. Patient remains A&O throughout. STAT call place to Dr. Mcintyre to update him on change in patients status. Instructions for adenosine 6mg one time now. Given. Rate decreased to as low as 60 BPM for a few seconds. No P waves noted. Rate increased back up to 180s. Instructions for 12mg adenosine. Given. Approximately 2 second pause with rate slowed to 80s. No P waves. BP holding at 120s/80s. Instructions for 5mg Metoprolol 1X now. Given. Improvement in rate noted with rate 150s-160s. Dr. Mcintyre arrived to bedside. Is at bedside assessing patient now. Patient remains A&O. Instructions for additional dose of metoprolol 5mg 1X now. Rate now 140s- Afib. Dr. Mcintyre remains in room.
--- NOTE | 2020-02-27 11:34 | ECG_ITS ---
[facility] ED Test Date: 2020-02-27 Pat Name: Nick Alatorre Department: Room: 102 Gender: Male Health Care Analyst: : 1950 Requested By: Dav Fernandez Order Number: [id number] Richard MD: Marvin Troy M.D. Measurements Intervals [place] Rate: 181 P: AL: -1 QRS: -5 QRSD: 100 T: 63 QT: 240 QTc: 417 Interpretive Statements ATRIAL FIBRILLATION WITH RAPID VENTRICULAR RESPONSE SEPTAL MYOCARDIAL INFARCTION [40+ ms Q WAVE IN V1/V2], OF INDETERMINATE AGE INTERPRETATION BASED ON A DEFAULT AGE OF 40 YEARS No previous ECG available for comparison Electronically Signed On 02-27-2020 16:53:53 CDT by Marvin Troy M.D. [email or web address]
--- NOTE | 2020-02-27 11:34 | PC.NURSE ---
Care resumed by primary nurse Cayetano at this time.
[2020-02-27] MEDS: metoprolol tartrate 1 mg/1 mL SDV 5 mL 5 MG IV ×3 (11:41→11:43)
[2020-02-27] MEDS: adenosine 3 mg/mL SDV 2mL 12 MG IVP (11:42)
[2020-02-27] MEDS: adenosine 3 mg/mL SDV 2mL 6 MG IVP (11:42)
--- NOTE | 2020-02-27 11:46 | PC.NURSE ---
Instructions from Dr. Mcintyre to start cardizem drip. Order placed. Primary nurse Cayetano awaiting drip from pharmacy and will start when received.
--- NOTE | 2020-02-27 11:48 | PC.NURSE ---
:11:20 6mg adenosine 11:24 12 mg adenosine 11:27 5mg Metoprolol 11:27 Doc Francisco Javier at bedside 11:30 5 mg Metoprolol 11:36 5 mg Metoprolol
--- NOTE | 2020-02-27 11:51 | PC.NURSE ---
Care turned back over to Primary nurse Cayetano.
--- NOTE | 2020-02-27 11:55 | PM.PN ---
Subjective Subjective: Interval history: Today noted to have new onset of very fast heart rate, found to be AFib w RVR, which he says has never had in the past. He is feeling off, but otherwise does not have chest pain, palpitations, shortness of breath. Denies cough or pleuritic discomfort. Says occasionally gets some phlegm due to smoking marijuana. Does not have hemoptysis. His appetite otherwise has been poor. Has not had a bowel movement in a while. After his heart rate is slightly better controlled, he is having chills. Earlier today was having low-grade fever, 100.2. Vitals/I&O/Wt Last Vital Signs Temp 99.5 F 02/27/20 06:47 Pulse 189 H 02/27/20 11:35 Resp 20 H 02/27/20 06:47 BP 108/72 02/27/20 06:47 Pulse Ox 96 02/27/20 11:35 02/26/20 02/27/20 02/27/20 22:59 06:59 14:59 Intake Total 2868.5 / 3528.5 1258.75 / 4787.25 290 / 290 Output Total 850 / 1050 400 / 1450 250 / 250 Balance 2018.5 / 2478.5 858.75 / 3337.25 40 / 40 Weight last 48 hrs Weight 62.596 kg Physical Exam Const: COMMON NORMALS: no acute distress and patient oriented x3 HENMT: COMMON NORMALS: oropharynx normal Neck/C-Spine: COMMON NORMALS: no JVD Resp: COMMON NORMALS: normal respiratory effort and clear to auscultation bilaterally AUSCULTATION: clear to auscultation bilaterally Cardio: COMMON NORMALS: no JVD, regular rhythm, S1 normal heart sound present, S2 normal heart sound present and No murmurs present (Cardio) RHYTHM: regular rhythm HEART SOUNDS: S1 normal heart sound present and S2 normal heart sound present GI: COMMON NORMALS: Normal to inspection, nondistended, normoactive bowel sounds present, Soft to palpation and non-tender PALPATION: Yes Soft to palpation Extremity: COMMON NORMALS: no joint enlargement and no pedal edema Neuro: COMMON NORMALS: patient oriented x3 and moves all extremities Skin: COMMON NORMALS: no rashes or lesions noted GENERAL SKIN EXAM: no rashes or lesions noted Data : 02/27/20 04:30 02/27/20 04:30 Micro: Microbiology 02/26/20 01:00 Gram Stain - Final Cerebrospinal Fluid CSF Culture - Preliminary 02/25/20 18:50 Blood Culture - Preliminary Blood NEGATIVE TO DATE 02/25/20 18:48 Blood Culture - Preliminary Blood NEGATIVE TO DATE A&P Assessment and plan (1) Paroxysmal atrial fibrillation with RVR: This morning heart rates up into 180s, initially thought to be SVT, however after receiving 6, then 12 mg of adenosine after not responding to vagal maneuvers, rhythm slowed down after 2 reveal A. fib. He denies history of A. fib in the past. Received IV metoprolol 5 mg x 3 for a total of 15 mg, with heart rates improved down to 130s, however, still persisting there, occasionally going up to 140s. Blood pressures remained stable. Due to this is started on Cardizem drip. Potassium is replaced. Check magnesium. Currently may suspect this paroxysmal episode due to his fever. Briefly discussed with him regarding risk of CVA, and anticoagulation, however, at this time this would not be safe given concern for cerebellar hemorrhage. Status: Acute (2) Sepsis: Concern for possible ongoing sepsis, with persistent leukocytosis, tachycardia, fever spikes. Without obvious source identified on detailed evaluation so far. CSF is normal without suggestion of infection. Urinalysis, chest imaging without suggestion of infection. He denies any GI symptoms apart from poor appetite recently. Has been having constipation. No integumentary complaints, no skin wounds, rashes. He states that he does have 2 dogs at home, although no recent bites. He does go outside to walk with them. We will add tick panel. Empirically for now start on doxycycline. Noted enlargement of sublingual tonsils. Lingual cancer cannot be excluded on imaging. At this time B symptoms are also on differential. Appreciate ENT assessment. Unusual findings on CT of the head, with potential petechial hemorrhage in left cerebellar hemisphere. Bilateral cerebral hemisphere multifocal areas of demyelination. Pending MRI head. Will add MRA. Blood culture in process, so far without growth. Continue broad-spectrum antibiotic coverage with vancomycin and Zosyn Noted pro-calcitonin elevation (0.59), lactic acid-1.6 COVID-19 negative. History of hypopharyngeal mass and thyroid nodule. Recent biopsies done at [facility]; records requested CRP is high. Add also LDH, RF, LUKASZ, ANCA, SPEP. Repeat blood cultures. Status: Acute Qualifiers: Sepsis type: sepsis due to unspecified organism Sepsis acute organ dysfunction status: unspecified Qualified Code(s): A41.9 - Sepsis, unspecified organism (3) Degenerative disc disease: -Evidence of multilevel DJD on imaging -Pain control as needed Status: Chronic Qualifiers: Spinal region: lumbosacral Qualified Code(s): M51.37 - Other intervertebral disc degeneration, lumbosacral region (4) Aortic aneurysm: -Stable fusiform aneurysmal dilatation of the thoracic aortic arch Status: Chronic Qualifiers: Aortic location: thoracic aorta Presence of rupture: without rupture Qualified Code(s): I71.2 - Thoracic aortic aneurysm, without rupture (5) Arthritis: -pain control as needed Status: Chronic (6) COPD (chronic obstructive pulmonary disease): -no evidence of acute exacerbation -supplemental oxygen as needed Status: Chronic Qualifiers: COPD type: unspecified COPD Qualified Code(s): J44.9 - Chronic obstructive pulmonary disease, unspecified Attestations Medical Necessity Statement*: Continue admission for assessment assessment management of recurrent fevers, fever of unknown origin, possible sepsis, A. 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
[2020-02-27 12:04] LABS: Magnesium 2.1 mg/dL (1.7-2.3)
[2020-02-27] MEDS: potassium chloride oral liq 20 mEq/15 mL UDC 40 MEQ PO (12:11)
[2020-02-27 13:19] LABS: Erythrocyte Sedimentation Rate 7 mm/hr (0-10)
--- NOTE | 2020-02-27 13:30 | PC.NURSE ---
Cardizem drip at 1 mg/hr Pt has been on Cardizem drip at 15 mg/hr for an hour now and pt is still in AFIB with RVR of 120s to 145s. Notified Dr Fernandez and received telephone order to give Digoxin 0.25 mg IVP one time now. Pt BP-106/66 currently.
[2020-02-27] MEDS: digoxin 250 mcg/ml INJ 2 mL IVP ×2 (14:18→15:58)
[2020-02-27] MEDS: doxycycline 100 MG in sodium chloride 0.9% (plus) 100 ML IV (14:23)
[2020-02-27 14:38] LABS: Lactate Dehydrogenase 299 U/L (135-225)
[2020-02-27 15:23] LABS: HIV 1 & 2 Antibody Non-Reactive (Non-Reactiv); HIV 1 & 2 Antigen Non-Reactive (Non-Reactiv)
[2020-02-27 15:43] LABS: Influenza A by IFA Negative (Negative); Influenza B by IFA Negative (Negative)
--- NOTE | 2020-02-27 15:47 | PC.NURSE ---
Heart rate went up to 160s Pt is sustaining again in 160s ventricular rate. Temp-99.8 orally. 2 hrs post Digoxin 0.25 mg IVP and Cardizem drip is still running at 15 mg /hr. BP currently is 103/71. Dr Fernandez notified and received an order for Digoxin 0.25 mg IVP.
--- NOTE | 2020-02-27 17:00 | PC.NURSE ---
Converted to Sinus Rhythm HR in 96 Pt converted to SR with HR- 95-96 sustaining at that rate. BP currently is 110/69. Dr. Oconnor notified. Cardizem drip is still running at 15 mg/hr.
--- NOTE | 2020-02-27 18:12 | PM.CONSULT ---
Providers/Reason For Consult Consulting Physican/Specialty*: Dr. Turner Frye MD Reason for Consult*: R/O Tongue/Tonsil Malignancy Requesting Physcian: Dav Fernandez MD Attending Physician: Dav Fernandez History of Present Illness History of Present Illness Nick Alatorre is a 69 year old male who reports a one month h/o recurrent malaise and fever. The patient was admitted to further evaluate/treat this symptom. I was consulted to evaluate the patient's upper airway to evaluate the patient's upper airway for a source of his symptoms. The patient c/o malaise and fever that have improved 'slightly' on IV antibiotics. The patient denies any shortness of breath, epistaxis, chest pain, or hemoptysis. The patient is o/w without c/o. Review of Systems General: Reports: 10 or more systems reviewed and unremarkable except in HPI and below Meds/Allergies Home Medications and Allergies Home Medications Medication Instructions Recorded Confirmed Last Taken Type aspirin 325 mg tablet 325 mg PO BID PRN 02/17/20 02/25/20 Unknown History sulfamethoxazole 800 1 tab PO BID 14 Days #28 tab 02/17/20 02/26/20 Unknown Rx mg-trimethoprim 160 mg tablet ciprofloxacin HCl [Cipro] 500 mg PO BID 02/26/20 02/26/20 Unknown History Allergies Allergy/AdvReac Type Severity Reaction Status Date / Time No Known Allergies Allergy Verified 02/24/20 09:56 Current Medications Current Medications Generic Name Dose Route Start Last Admin Trade Name Freq PRN Reason Stop Dose Admin Acetaminophen 650 mg 02/26/20 02:47 02/27/20 12:11 Tylenol PO 650 mg Q4H PRN Administration FEVER Vancomycin HCl 1,500 mg/ 250 mls @ 250 mls/hr 02/26/20 07:00 02/27/20 08:37 Sodium Chloride IV Infused Q24H DYAN Infusion Protocol As Directed Piperacillin Sod/Tazobactam 50 mls @ 12.5 mls/hr 02/26/20 03:00 02/27/20 11:57 Sod 3.375 gm/ Sodium Chloride IV 12.5 mls/hr Q8H DYAN Administration Protocol As Directed Sodium Chloride 1,000 mls @ 75 mls/hr 02/26/20 02:47 02/27/20 04:50 Sodium Chloride 0.9% IV 75 mls/hr .[id number] DYAN Administration Diltiazem HCl 125 mg/ Sodium 125 mls @ 0 mls/hr 02/27/20 11:45 02/27/20 12:00 Chloride IV 15 mg/hr .Q0M DYAN 15 mls/hr Titration Protocol Per Protocol Doxycycline Hyclate 100 mg/ 100 mls @ 100 mls/hr 02/27/20 13:30 02/27/20 14:23 Sodium Chloride IV 100 mls/hr Q12H DYAN Administration Protocol PFSH Acute PFSH: Medical History Aortic aneurysm 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 Arthritis COPD (chronic obstructive pulmonary disease) Degenerative disc disease C3-C6 spondylitic changes Hypopharyngeal mass Right lingular 5 mm cystic nodule near superior hypopharynx Salivary gland calculus Tetrahydrocannabinol (THC) use disorder, mild, abuse Thyroid nodule 9 and 11 mm thyroid nodules Surgical History H/O removal of cyst History of appendectomy S/P thyroid biopsy Family History Denies family history of CAD (coronary artery disease) Chronic kidney disease (CKD) Cancer Social History Smoking and tobacco status: never smoked Alcohol intake: never Substance/Drug Use: current Substance/Drug use type: Marijuana Vitals/I&O/Wt Last Vital Signs Temp 99.8 F H 02/27/20 16:00 Pulse 96 02/27/20 17:00 Resp 32 H 02/27/20 17:00 BP 110/69 02/27/20 17:00 Pulse Ox 96 02/27/20 13:00 02/27/20 02/27/20 02/27/20 06:59 14:59 22:59 Intake Total 1258.75 / 4787.25 540.25 / 540.25 Output Total 400 / 1450 250 / 250 400 / 650 Balance 858.75 / 3337.25 290.25 / 290.25 -400 / -109.75 Weight last 48 hrs Weight 62.596 kg Physical Exam Const: COMMON NORMALS: patient oriented x3 GENERAL APPEARANCE: cooperative and well developed HENMT: COMMON NORMALS: normocephalic, atraumatic, external ears normal, EAC's normal, Normal external nose present and Normal nasal mucous membranes and turbinates present HEAD & SCALP: normocephalic and atraumatic FACE & SINUS: normal facial exam NOSE: Normal external nose present and Normal nasal mucous membranes and turbinates present EXTERNAL EAR: Yes external ears normal EXTERNAL AUDITORY CANAL: EAC's normal MOUTH: Normal oral and palatal mucosa present, lip normal, tongue normal and Normal salivary glands and ducts present THROAT: posterior oropharynx normal and tonsils normal Eye: COMMON NORMALS: Equal, round and reactive pupils present, EOMs intact bilaterally and conjunctivae normal CONJUNCTIVA: Yes conjunctivae normal PUPIL: Yes Equal, round and reactive pupils present Neck/C-Spine: COMMON NORMALS: full ROM, no lymphadenopathy and Thyroid normal GENERAL: Yes normal visual inspection and Yes trachea midline THYROID: Thyroid normal CAROTIDS: Yes normal carotid upstroke Lymph: LYMPHATIC: no lymphadenopathy noted Neuro: COMMON NORMALS: patient oriented x3 Data Micro: Micro: Microbiology 02/27/20 13:15 Blood Culture - Pr eliminary Blood [facility] 02/27/20 13:30 Blood Culture - Pr eliminary Blood [facility] 02/26/20 01:00 Gram Stain - Final Cerebrospinal Flu id CSF Culture - Prel iminary 02/25/20 18:50 Blood Culture - Pr eliminary Blood NEGATIVE TO PAULO E 02/25/20 18:48 Blood Culture - Pr eliminary Blood NEGATIVE TO PAULO E A&P Additional A&P Information Impression: 69 yo wm with a fever of unknown origin. The patient has mild subglottic narrowing on fiberoptic exam and an elevated CRP, but an o/w normal exam. Plan: There is an ANCA panel pending - Granulomatosis with Polyangiitis 's is an unlikely, but possible cause of the patient's symptoms. I reviewed the patient's neck CT scan. I will reevaluate the patient in 24 - 48 hours and will consider surgical biopsy of the patient's subglottis if his laryngeal exam is unchanged. I do not see any other reason from a Head and Neck Standpoint for the patient's symptoms. I discussed this with Dr. Halytiskyy. Procedures Procedure Narrative Flexible Fiberoptic Nasopharyngolaryngoscopy: verbal informed consent was obtained from the patient; the patient's nose was sprayed with an Afrin/Lidocaine Mix; the fiberoptic scope was advanced into the nose and was used to make an inspection of the nasopharynx, oralpharynx, hypopharynx, and larynx; there was a thin, membranous appearing narrowing of the anterior subglottis; the airway is widely patent, and the true vocal cords have normal mobility bilaterally; the laryngeal exam is o/w normal bilaterally. Coding Level of Care Code Acute Junior Mechanical Engineer for Artur Delatorre
[2020-02-27] MEDS: fluticasone nasal spray 16gm Btl 2 SPRAY NASAL (19:22)
--- NOTE | 2020-02-27 19:24 | PC.NURSE ---
Patient refused to take Flonase stating, it just does not work for me. ..
--- NOTE | 2020-02-27 19:35 | PC.NURSE ---
pt temp 102.4. placed ice behind neck, at feet, under arms, and in groin
--- NOTE | 2020-02-27 19:42 | NPU.GN ---
Cardiac Stepdown Group Topic: General Mood of Group
--- NOTE | 2020-02-27 19:42 | PC.NURSE ---
Messaged Dr Fernandez regarding patient refusing to take Flonase. Also informed him that patient has reached his max dose of Tylenol today for persistent fever. Dr hardeep song.
--- NOTE | 2020-02-27 19:49 | PC.NURSE ---
Ice packs placed to help with persistent temperature. Dr Fernandez was notified and approved.
--- NOTE | 2020-02-27 19:51 | P.CONIM_ITS ---
Providers/Reason For Consult Consulting Physican/Specialty*: Cardiology Reason for Consult*: Atrial fibrillation with rapid ventricle response Attending Physician: Dav Fernandez History of Present Illness History of Present Illness Nick Alatorre is a 69 year old male admitted with fever of unknown region, sepsis, tonsillitis and possible slavery gland infection undergoing investigation with blood culture biopsy of the glands and CSF fluid examination noted to be in A. fib with RVR he was started on metoprolol IV Cardizem and digoxin, he finally slowed down and converted into sinus rhythm currently heart rate in 70s. Blood pressure is stable around 105 systolic. Patient denies any prior history of heart problem or atrial fibrillation. He denies chest pain PND orthopnea. He denies history of diabetes mellitus, he denies history of smoking but had past medical history documented as COPD. He has been ruled out for C OVID Review of Systems General: Reports: 10 or more systems reviewed and unremarkable except in HPI and below Const: Reports: fever(s), chills, body aches, change in appetite, change in weight, fatigue, malaise, night sweats, diaphoresis and change in sleep pattern; Denies: snoring Eyes: Reports: eye redness; Denies: change in vision or blurry vision ENMT: Denies: throat pain, mouth pain, swelling of lips/tongue, oral sores, change in hearing, epistaxis, post nasal drip or sinus pain Card: Denies: chest pain or swelling of feet/ankles Resp: Denies: dyspnea GI: Denies: abdominal pain, nausea, vomiting, rectal pain or melena : Denies: flank pain, difficulty urinating, dysuria, urinary frequency, urinary urgency or hematuria Musc: Reports: neck pain and back pain; Denies: joint redness or joint warmth Skin/Breast: Denies: rash, pruritus or erythema Neuro: Reports: headache(s) Psych: Denies: anxiety Endo: Denies: polyuria Mateusz/Lymph: Denies: easy bruising All/Imm: Denies: urticaria Meds/Allergies Home Medications and Allergies Home Medications Medication Instructions Recorded Confirmed Last Taken Type aspirin 325 mg tablet 325 mg PO BID PRN 02/17/20 02/25/20 Unknown History sulfamethoxazole 800 1 tab PO BID 14 Days #28 tab 02/17/20 02/26/20 Unknown Rx mg-trimethoprim 160 mg tablet ciprofloxacin HCl [Cipro] 500 mg PO BID 02/26/20 02/26/20 Unknown History Allergies Allergy/AdvReac Type Severity Reaction Status Date / Time No Known Allergies Allergy Verified 02/24/20 09:56 Current Medications Current Medications Generic Name Dose Route Start Last Admin Trade Name Sara PRN Reason Stop Dose Admin Acetaminophen 650 mg 02/26/20 02:47 02/27/20 19:35 Tylenol PO 650 mg Q4H PRN Administration FEVER Fluticasone Propionate 2 spray 02/27/20 18:50 02/27/20 19:24 Flonase NASAL Not Given DAILY DYAN Vancomycin HCl 1,500 mg/ 250 mls @ 250 mls/hr 02/26/20 07:00 02/27/20 08:37 Sodium Chloride IV Infused Q24H DYAN Infusion Protocol As Directed Piperacillin Sod/Tazobactam 50 mls @ 12.5 mls/hr 02/26/20 03:00 02/27/20 19:21 Sod 3.375 gm/ Sodium Chloride IV 12.5 mls/hr Q8H DYAN Administration Protocol As Directed Sodium Chloride 1,000 mls @ 75 mls/hr 02/26/20 02:47 02/27/20 19:20 Sodium Chloride 0.9% IV 75 mls/hr .[id number] DYAN Administration Diltiazem HCl 125 mg/ Sodium 125 mls @ 0 mls/hr 02/27/20 11:45 02/27/20 19:22 Chloride IV 10 mg/hr .Q0M DYAN 10 mls/hr Titration Protocol Per Protocol Doxycycline Hyclate 100 mg/ 100 mls @ 100 mls/hr 02/27/20 13:30 02/27/20 15:23 Sodium Chloride IV Infused Q12H DYAN Infusion Protocol Additional Medication Information Active Medications Generic Name Dose Route Start Last Admin Trade Name Sara PRN Reason Stop Dose Admin Acetaminophen 650 mg 02/26/20 02:47 02/26/20 03:54 Tylenol PO 650 mg Q4H PRN Administration FEVER Vancomycin HCl 1,500 mg/ 250 mls @ 250 mls/hr 02/26/20 07:00 02/26/20 06:50 Sodium Chloride IV 250 mls/hr Q24H DYAN Administration Protocol As Directed Piperacillin Sod/Tazobactam 50 mls @ 12.5 mls/hr 02/26/20 03:00 02/26/20 03:45 Sod 3.375 gm/ Sodium Chloride IV 12.5 mls/hr Q8H DYAN Administration Protocol As Directed Sodium Chloride 1,000 mls @ 75 mls/hr 02/26/20 02:47 02/26/20 03:45 Sodium Chloride 0.9% IV 75 mls/hr .[id number] DYAN Administration Ondansetron HCl 4 mg 02/26/20 02:47 Zofran IVP Q6H PRN NAUSEA AND VOMITING No Known Allergies Allergy (Verified 02/24/20 09:56) PFSH Acute PFSH: Medical History Aortic aneurysm 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 Arthritis COPD (chronic obstructive pulmonary disease) Degenerative disc disease C3-C6 spondylitic changes Hypopharyngeal mass Right lingular 5 mm cystic nodule near superior hypopharynx Salivary gland calculus Tetrahydrocannabinol (THC) use disorder, mild, abuse Thyroid nodule 9 and 11 mm thyroid nodules Surgical History H/O removal of cyst History of appendectomy S/P thyroid biopsy Family History Denies family history of CAD (coronary artery disease) Chronic kidney disease (CKD) Cancer Social History Smoking and tobacco status: never smoked Alcohol intake: never Substance/Drug Use: current Substance/Drug use type: Marijuana Vitals/I&O/Wt Last Vital Signs Temp 102.4 F H 02/27/20 19:22 Pulse 94 02/27/20 19:22 Resp 20 H 02/27/20 19:22 BP 118/72 02/27/20 19:22 Pulse Ox 90 02/27/20 19:22 02/27/20 02/27/20 02/27/20 06:59 14:59 22:59 Intake Total 1258.75 / 4787.25 540.25 / 540.25 1260.5 / 1800.75 Output Total 400 / 1450 250 / 250 400 / 650 Balance 858.75 / 3337.25 290.25 / 290.25 860.5 / 1150.75 Physical Exam Narrative: EXAM NARRATIVE: GENERAL: Patient is alert, awake and oriented x3. He is febrile NECK: No jugular vein distension. Right side submandibular HEENT: No cyanosis. No icterus. No pallor. HEART: Regular S1 and S2. No murmur, rub or gallop. LUNGS: Clear to auscultate bilaterally. ABDOMEN: Soft, nontender and nondistended. Positive bowel sounds. No guarding, rebound or tenderness. CENTRAL NERVOUS SYSTEM: Grossly nonfocal. EXTREMITIES: Lower extremities without edema bilaterally. Data Micro: Micro: Microbiology 02/27/20 13:15 Blood Culture - Pr eliminary Blood [facility] 02/27/20 13:30 Blood Culture - Pr eliminary Blood [facility] 02/26/20 01:00 Gram Stain - Final Cerebrospinal Flu id CSF Culture - Prel iminary 02/25/20 18:50 Blood Culture - Pr eliminary Blood NEGATIVE TO PAULO E 02/25/20 18:48 Blood Culture - Pr eliminary Blood NEGATIVE TO PAULO E A&P Assessment and plan (1) Paroxysmal atrial fibrillation with RVR: Most likely secondary to sepsis and hyperadrenergic state. We will discontinue digoxin, increase IV fluid 100 mL/h, continue IV Cardizem and tomorrow we will switch him to 120 mg p.o. daily. I will switch metoprolol to 12.5 mg twice daily. Further plan will be advised as per progress of the patient. Echocardiogram will be obtained in the morning Status: Acute (2) Sepsis: Continue IV antibiotics as per medicine. 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
[2020-02-27] MEDS: oxymetazoline 0.05% Nasal Spray 15 mL 2 SPRAY NOSTRIL-B (20:20)
--- NOTE | 2020-02-27 20:25 | PC.NURSE ---
Dr Srinivasan in to see patient. Plan to start PO Metoprolol and to continue Cardizem gtt through tonight. Will also increase fluids to 100ml/hr.
[2020-02-27] MEDS: metoprolol tartrate 25 mg Tablet 12.5 MG PO (21:00)
--- NOTE | 2020-02-27 21:03 | PC.NURSE ---
Did not start new bag of 0.9%NS 100ml/hr due to patient having new bag hanging from previous order. Rate on pump changed to 100ml/hr as ordered by Dr Srinivasan. Dr Srinivasan in patient's room at time of changes.
[2020-02-27 22:53] LABS: Urine Creatinine 93 mg/dL (39-259); Urine Protein Random 63 mg/dL
[2020-02-28] VITALS (10 sets, daily range): BP systolic 100–122; BP diastolic 66–76; PULSE 71–103; RESP 20–30; TEMP 36.8–39; O2SAT 90–97
[2020-02-28] MEDS: doxycycline 100 MG in sodium chloride 0.9% (plus) 100 ML IV ×2 (00:34→13:54)
[2020-02-28] MEDS: piperacillin-tazobactam 3.375 GM in sodium chloride 0.9% (plus) 50 ML IV ×3 (02:09→18:16)
[2020-02-28 02:10] LABS: Hepatitis A Antibody IgM Non-Reactive (Nonreactive); Hepatitis B Core IgM Non-Reactive (Nonreactive); Hepatitis B Surface Antigen Non-Reactive (Nonreactive); Hepatitis C Virus Antibody Non-Reactive (Nonreactive)
--- NOTE | 2020-02-28 03:20 | PC.NURSE ---
Received consent to obtain patient's medical records from [facility] and has been faxed to [facility] in [place], [place].
[2020-02-28] MEDS: ibuprofen 200 mg Tablet 400 MG PO ×3 (03:36→21:18)
--- NOTE | 2020-02-28 03:43 | PC.NURSE ---
Noted patient to have blanchable redness to sacrum. Applied Aloe [place] cream. Instructed patient on position changes. Patient is able to turn self and demonstrated such. Patient verbalized complete understanding.
[2020-02-28 05:10] LABS: Basophils # 0.1 10^3/uL (0.0-0.1); Basophils % 0.4 %; Eosinophils % 0.1 %; Lymphocytes # 2.2 10^3/uL (0.8-4.8); Lymphocytes % 15.4 %; Mean Corpuscular HGB Conc 34.4 g/dL (30.0-36.0); Mean Corpuscular Hemoglobin 30.1 pg (28.0-34.0); Mean Corpuscular Volume 87.7 fL (80-94); Mean Platelet Volume 10.3 fL (7.4-10.4); Monocytes # 0.5 10^3/uL (0.2-0.9); Monocytes % 3.5 %; Neutrophils # 11.2 10^3/uL (1.8-7.7); Neutrophils % 78.4 %; Nucleated Red Blood Cells % 0 %; Platelet Count 267 10^3/cmm (130-400); Red Blood Count 3.65 10^6/uL (4.1-5.3); Red Cell Distribution Width 15.7 % (12.1-15.1); White Blood Count 14.3 10^3/uL (4.0-10.0)
[2020-02-28 05:34] LABS: Alanine Aminotransferase 156 U/L (0-41); Albumin Level 2.5 g/dL (3.5-5.2); Alkaline Phosphatase 126 IU/L (40-130); Anion Gap 15.4 (5-19); Blood Urea Nitrogen 15 mg/dL (8-23); Calcium 7.5 mg/dL (8.5-10.5); Carbon Dioxide 18 mmol/L (22-29); Chloride 100 mmol/L (98-107); Globulin 2.6 g/dL (1.3-4.6); Glomerular Filtration Rate 83.7 mL/min (90-130); Glucose 141 mg/dL (65-115); Osmolality Calculated 269 mOsm/kg (285-295); Potassium 3.4 mmol/L (3.5-5.1); Sodium 130 mmol/L (136-145); Total Protein 5.1 g/dL (6.6-8.7)
[2020-02-28] MEDS: sodium chloride 0.9% 1,000 ML 100 ML IV ×2 (05:42→15:57)
--- NOTE | 2020-02-28 05:52 | PC.NURSE ---
AT 0330 patient temperature was 101.9. Ibuprofen 400mg PO was given at 0336. Patient's temperature at this time is 98.7. Patient stated, I feel like my fever has improved. Reports feeling some better this morning.
[2020-02-28 06:11] LABS: Aspartate Amino Transferase 96 U/L (0-40)
[2020-02-28 06:27] LABS: Slide Review Slide Review Perform
--- NOTE | 2020-02-28 07:00 | USCV_ITS ---
Nick Alatorre Age: 69 Gender: M : 1950 Exam Date: 02/28/2020 06:17 Ordering Phys: Marjorie Srinivasan MD ([email or web address]) Technologist: Clotilde Martínez Exam Location: [facility] [place] Indication: AFIB BP: 122 / 70 HR: 71 Rhythm: Sinus Technical Quality: Adequate MEASUREMENTS (Male / Female) Normal Values 2D ECHO LV Diastolic Diameter PLAX 5.0 cm 4.2 - 5.9 / 3.9 - 5.3 cm LV Systolic Diameter PLAX 4.1 cm LV Chamber Size 3.9 cm IVS Diastolic Thickness 0.8 cm 0.6 - 1.0 / 0.6 - 0.9 cm IVS Systolic Thickness 0.9 cm LVPW Diastolic Thickness 1.7 cm 0.6 - 1.0 / 0.6 - 0.9 cm LVPW Systolic Thickness 1.7 cm RV Chamber Size 2.5 cm LVOT Diameter 2.0 cm LV Ejection Fraction 2D Teich 39.8 % LV Ejection Fraction MOD 2C 52.1 % LV Ejection Fraction 2C AL 50.4 % LA Diameter 4.7 cm LA Width 3.0 cm LA Height 4.9 cm RA Width 2.9 cm RA Height 4.6 cm Aorta at Sinotubular Diameter 3.0 cm M-MODE LV Diastolic Diameter MM 5.6 cm 4.2 - 5.9 / 3.9 - 5.3 cm LV Systolic Diameter MM 4.0 cm LV Ejection Fraction MM Teich 54.9 % IVS Diastolic Thickness MM 0.6 cm 0.6 - 1.0 / 0.6 - 0.9 cm IVS Systolic Thickness MM 0.9 cm LVPW Diastolic Thickness MM 0.9 cm 0.6 - 1.0 / 0.6 - 0.9 cm LVPW Systolic Thickness MM 1.4 cm Aortic Annulus Diameter 3.6 cm LA Ao Ratio MM 1.3 MV E Point Septal Separation 0.7 cm DOPPLER AV Peak Velocity 182.0 cm/s LVOT Peak Velocity 134.0 cm/s AV Area Cont Eq vti 2.2 cm squared AV Area Cont Eq pk 2.3 cm squared MV Area PHT 3.1 cm squared Mitral E to A Ratio 0.9 MV E' Velocity 18.0 cm/s Mitral E to MV E' Ratio 6.1 Mitral E to LV E' Lateral Ratio 4.9 Mitral E to LV E' Septal Ratio 8.1 TR Peak Velocity 240.0 cm/s TR Peak Gradient 23.1 mmHg TV Peak E Velocity 70.0 cm/s Right Atrial Pressure 3.0 mmHg Pulmonary Artery Systolic Pressu 26.0 mmHg PV Peak Velocity 54.0 cm/s RV Acceleration Time 0.1 s RV Ejection Time 0.3 s RV AcT/ET 0.3 FINDINGS Left Ventricle Normal left ventricular cavity size. No regional wall motion abnormalities. Normal left ventricular systolic function. Left ventricular ejection fraction is estimated at 60 %. Grade I/IV diastolic dysfunction (abnormal relaxation filling pattern), normal to mildly elevated filling pressures. Right Ventricle The right ventricle is normal in size and function. Right Atrium The right atrium is normal in size. Left Atrium The left atrium is normal in size. Mitral Valve Structurally normal mitral valve without significant stenosis or prolapse. There is no mitral regurgitation. Aortic Valve Moderate aortic valve calcification. No aortic valve stenosis. Trace aortic valve regurgitation. Tricuspid Valve Structurally normal tricuspid valve without significant stenosis or regurgitation. Pulmonary artery systolic pressure is normal. Pulmonic Valve Structurally normal pulmonic valve without significant stenosis. There is no pulmonic regurgitation. Pericardium Normal pericardium without effusion. Aorta Normal ascending aorta dimension. CONCLUSIONS 1-Normal left ventricular cavity size. No regional wall motion abnormalities. Normal left ventricular systolic function. Left ventricular ejection fraction is estimated at 60 %. Grade I/IV diastolic dysfunction (abnormal relaxation filling pattern), normal to mildly elevated filling pressures. 2-Moderate aortic valve calcification. No aortic valve stenosis. Trace aortic valve regurgitation. 3-There is no pericardial effusion. 4-Pulmonary artery systolic pressure is within normal limits. 5-Right atrial pressure is around 5 mm of mercury. 6-There are no prior echocardiogram studies to compare. Marjorie Srinivasan MD (Electronically Signed) Final Date: 28 February 2020 11:53 S
[2020-02-28] MEDS: metoprolol tartrate 25 mg Tablet 12.5 MG PO ×2 (08:31→17:26)
[2020-02-28 08:41] LABS: PROTEIN, TOTAL 4.9 g/dL (6.1-8.1)
--- NOTE | 2020-02-28 10:15 | PC.SOCIAL ---
IMM Page 2 of IMM explained to and signed by patient. Initialed, dated, and timed and placed in chart. Copy provided to patient.
[2020-02-28 12:25] LABS: Lyme AB Screen <0.90 index
--- NOTE | 2020-02-28 12:27 | PM.PN ---
Subjective Subjective: Interval history: Heart rate is within normal limit, rhythm is sinus Medications: Reviewed: Yes Medication Review Details: Active Medications Generic Name Dose Route Start Last Admin Trade Name Freq PRN Reason Stop Dose Admin Acetaminophen 650 mg 02/26/20 02:47 02/26/20 03:54 Tylenol PO 650 mg Q4H PRN Administration FEVER Vancomycin HCl 1,5 00 mg/ 250 mls @ 250 mls /hr 02/26/20 07:00 02/26/20 06:50 Sodium Chloride IV 250 mls/hr Q24H DYAN Administration Protocol As Directed Piperacillin Sod/T azobactam 50 mls @ 12.5 mls /hr 02/26/20 03:00 02/26/20 03:45 Sod 3.375 gm/ So dium Chloride IV 12.5 mls/hr Q8H DYAN Administration Protocol As Directed Sodium Chloride 1,000 mls @ 75 ml s/hr 02/26/20 02:47 02/26/20 03:45 Sodium Chloride 0.9% IV 75 mls/hr .[id number] DYAN Administration Ondansetron HCl 4 mg 02/26/20 02:47 Zofran IVP Q6H PRN NAUSEA AND VOMITI NG No Known Allergies Allergy (Verified 02/24/20 09:56) Vitals/I&O/Wt Last Vital Signs Temp 98.2 F 02/28/20 10:39 Pulse 77 02/28/20 10:39 Resp 22 H 02/28/20 10:39 BP 122/71 02/28/20 10:39 Pulse Ox 93 02/28/20 10:39 02/27/20 02/28/20 02/28/20 22:59 06:59 14:59 Intake Total 1372.917 / 1913.167 468.333 / 2381.500 480 / 480 Output Total 550 / 800 450 / 1250 400 / 400 Balance 822.917 / 1113.167 18.333 / 1131.500 80 / 80 Physical Exam Narrative: EXAM NARRATIVE: GENERAL: Patient is alert, awake and oriented x3. NECK: No jugular vein distension. HEENT: No cyanosis. No icterus. No pallor. HEART: Regular S1 and S2. No murmur, rub or gallop. LUNGS: Clear to auscultate bilaterally. ABDOMEN: Soft, nontender and nondistended. Positive bowel sounds. No guarding, rebound or tenderness. CENTRAL NERVOUS SYSTEM: Grossly nonfocal. EXTREMITIES: Lower extremities without edema bilaterally. Data : 02/28/20 04:49 02/28/20 04:49 Micro: Microbiology 02/26/20 01:00 Gram Stain - Final Cerebrospinal Fluid CSF Culture - Preliminary 02/27/20 19:57 Blood Culture - Preliminary Blood SPECIMEN COLLECTED 02/27/20 19:52 Blood Culture - Preliminary Blood SPECIMEN COLLECTED 02/27/20 13:15 Blood Culture - Preliminary Blood SPECIMEN COLLECTED 02/27/20 13:30 Blood Culture - Preliminary Blood SPECIMEN COLLECTED A&P Assessment and plan (1) Paroxysmal atrial fibrillation with RVR: Currently in sinus rhythm. Continue metoprolol 12.5 mg p.o. twice daily. Discontinue Cardizem and digoxin. Continue IV fluid, aspirin full dose. Status: Acute (2) Sepsis: Continue IV antibiotics as per medicine. Status: Acute Qualifiers: Sepsis type: sepsis due to unspecified organism Sepsis acute organ dysfunction status: unspecified Qualified Code(s): A41.9 - Sepsis, unspecified organism Attestations Medical Necessity Statement*: Require continuation hospitalization for above defined care Coding Level of Care Code Established Pt Acute Bilingual Case Manager for [facility] Fwd Patient Type Established History Expanded Problem Focused Exam Expanded Problem Focused Medical Decision Making Moderate Complexity Diagnoses Paroxysmal atrial fibrillation with RVR I48.0 Sepsis A41.9 Sepsis type: sepsis due to unspecified organism Sepsis acute organ dysfunction status: unspecified
[2020-02-28 12:55] LABS: Anti-Nuclear Antibody Screen NEGATIVE (NEGATIVE)
--- NOTE | 2020-02-28 14:13 | PC.NURSE ---
Patient was shivering and warm to touch and nurse called for [employer]SEM[employer]PECT[employer] staff to check temp at approximately 1pm and temp registered 102.2 axillary. PRN ibuprofen given per orders. temp rechecked around 2 pm and temp down to 101.0 axillary.
--- NOTE | 2020-02-28 14:24 | PC.NURSE ---
patient assisted to wheel chair for transport to [facility] for MRI patient alert and stable conditions.
--- NOTE | 2020-02-28 14:30 | MR_ITS ---
WS: [id number] MRA HEAD TECHNIQUE: Axial 3-D TOF images obtained with axial images and axial, sagittal, and coronal 2-D refor matted images. CLINICAL INFORMATION: Areas of demyelination and cerebellar hemorrhage? COMPARISON: None. FINDINGS: The distal vertebral arteries are patent. Basilar artery is patent. Normal vascularity to the BLOOD BANK SUPERVISOR ter ritory bilaterally. Persistent left [employer]LOOD BANK SUPERVISOR. Both ICAs are patent at the skull base. Normal vascularity to the DEEP and MCA territories bilaterally . Small right A1 segment. No evidence of high-grade proximal stenosis or aneurysm. Susceptibility artifact consistent with hemosiderin in the left cerebellum. This likely represents ca vernoma with associated venous angioma in typical configuration. No evidence of high flow AV malforma tion. MR/MR angio head wo con [id number] IMPRESSION: 1. No evidence of high flow AV malformation. 2. 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 3. Otherwise unremarkable intracranial MRA.
--- NOTE | 2020-02-28 14:30 | MR_ITS ---
WS: [id number] MRI HEAD WITHOUT CONTRAST TECHNIQUE: Sagittal T1, T2 axial, T2 axial FLAIR, axial and coronal T1 images, axial susceptibility w eighted imaging, axial diffusion weighted images, and coronal T2 images were obtained. CLINICAL INFORMATION: abnormal CT head findings COMPARISON: Recent CT head February 25, [address] from the same date FINDINGS: No evidence of restricted diffusion to suggest acute ischemia. Focal susceptibility artifact in the l eft cerebellum corresponds to the lesion seen on the prior studies consistent with cavernoma. This me asures approximately 5.5 mm. No evidence of recent hemorrhage. No surrounding edema. Enhancement parrish owen on the CT neck is typical for associated venous angioma. Gadolinium not administered on this stud y. Moderate to advanced supratentorial patchy white matter changes mainly involving the subcortical deep white matter and periventricular white matter. Findings are most likely due to small vessel disease in a patient this age. Corpus callosum appears normal. No significant corpus callosal atrophy. No sig nificant callosal lesions. Moderate parenchymal volume loss. Normal optic chiasm and pituitary infundibulum. Mild symmetric atrophy involving the temporal lobes a nd hippocampal formations. No extra-axial fluid collections. Paranasal sinuses are well aerated. Mild mucosal thickening in the left greater than right mastoid air cells. MR/MR head wo con* [id number] IMPRESSION: 1. No evidence of restricted diffusion to suggest acute ischemia. 2. Small left cerebellar cavernoma with associated venous angioma in typical c onfiguration. No evidence of high flow AV malformation. No recent hemorrhage. 3. Moderate patchy supratentorial white matter changes most likely due to smal l vessel disease in a patient this age rather than demyelination. Corpus callos um is normal in appearance. No corpus callosal atrophy. 4. Moderate parenchymal volume loss. Minimal small vessel changes in the jeimy. 5. Mild central canal stenosis in the upper cervical spine at C3-C4.
--- NOTE | 2020-02-28 14:30 | PM.PN ---
Subjective Subjective: Interval history: He is feeling better compared to how he felt when he had A. fib with RVR. He states that he was feeling achy on admission, especially in his hands, and appears this is actually better. Otherwise he feels about the same. Vitals/I&O/Wt Last Vital Signs Temp 101.1 F H 02/28/20 14:02 Pulse 77 02/28/20 10:39 Resp 22 H 02/28/20 10:39 BP 122/71 02/28/20 10:39 Pulse Ox 93 02/28/20 10:39 02/27/20 02/28/20 02/28/20 22:59 06:59 14:59 Intake Total 1372.917 / 1913.167 468.333 / 2381.500 480 / 480 Output Total 550 / 800 450 / 1250 850 / 850 Balance 822.917 / 1113.167 18.333 / 1131.500 -370 / -370 Physical Exam Const: COMMON NORMALS: no acute distress and patient oriented x3 HENMT: COMMON NORMALS: oropharynx normal Neck/C-Spine: COMMON NORMALS: no JVD Resp: COMMON NORMALS: normal respiratory effort and clear to auscultation bilaterally AUSCULTATION: clear to auscultation bilaterally Cardio: COMMON NORMALS: no JVD, regular rhythm, S1 normal heart sound present, S2 normal heart sound present and No murmurs present (Cardio) RHYTHM: regular rhythm HEART SOUNDS: S1 normal heart sound present and S2 normal heart sound present GI: COMMON NORMALS: Normal to inspection, nondistended, normoactive bowel sounds present, Soft to palpation and non-tender PALPATION: Yes Soft to palpation Extremity: COMMON NORMALS: no joint enlargement and no pedal edema Neuro: COMMON NORMALS: patient oriented x3 and moves all extremities Skin: COMMON NORMALS: no rashes or lesions noted GENERAL SKIN EXAM: no rashes or lesions noted Data : 02/28/20 04:49 02/28/20 04:49 Micro: Microbiology 02/26/20 01:00 Gram Stain - Final Cerebrospinal Fluid CSF Culture - Preliminary 02/27/20 19:57 Blood Culture - Preliminary Blood SPECIMEN COLLECTED 02/27/20 19:52 Blood Culture - Preliminary Blood SPECIMEN COLLECTED 02/27/20 13:15 Blood Culture - Preliminary Blood SPECIMEN COLLECTED 06/29/20 13:30 Blood Culture - Preliminary Blood SPECIMEN COLLECTED A&P Assessment and plan (1) Sepsis: Recurrent fevers. Cultures from blood, CSF unremarkable. Repeat blood cultures pending. Rapid flu, COVID negative. HIV, hepatitis panel negative. Lyme antibody not elevated. Pending other tick studies. LDH 299. TSH normal. TTE with grade 1 diastolic dysfunction. No pericardial effusion. No lingual cancer and ENT infection not suspected per discussion w the specialist. May benefit from dental evaluation if no other obvious source. Very elevated CRP on presentation, normal ESR. Will repeat CRP. No visual symptoms. No headache. MRI/MRA in progress due to demyelinating changes and possible petechial cerebellar hemorrhage. 30mm liver lesion suspected hemangioma, but if no other sourse may need evaluation by MRI to make sure he is not a possible abscess. Again having recurrence of fever this afternoon. Discussed with him that we do not have a good source for the symptoms of sepsis, or alternatively may be secondary to another cause, possibly autoimmune condition. Discussed with him with persistent fevers if we are not seeing additional clues, may benefit from evaluation at a higher level facility, and I would arrange for transfer for him, possibly tomorrow. He states would prefer overall if could discharge home with outpatient follow-up, although setting up such follow-up here may be difficult, and he understands the reasoning behind setting up a transfer due to concern for possible dangerous process so far unidentified. Continue broad-spectrum antibiotic coverage with vancomycin and Zosyn Noted pro-calcitonin elevation (0.59), lactic acid-1.6 History of hypopharyngeal mass and thyroid nodule; records requested. Status: Acute Qualifiers: Sepsis acute organ dysfunction status: unspecified Sepsis type: sepsis due to unspecified organism Qualified Code(s): A41.9 - Sepsis, unspecified organism (2) Paroxysmal atrial fibrillation with RVR: Difficult to control paroxysmal AFib. Appreciate cardiology recommendations. Converted to sinus rhythm. Currently may suspect this paroxysmal episode due to his fever. Briefly discussed with him regarding risk of CVA, and anticoagulation, however, at this time this would not be safe given concern for cerebellar hemorrhage. Status: Acute (3) Degenerative disc disease: -Evidence of multilevel DJD on imaging -Pain control as needed Status: Chronic Qualifiers: Spinal region: lumbosacral Qualified Code(s): M51.37 - Other intervertebral disc degeneration, lumbosacral region (4) Aortic aneurysm: -Stable fusiform aneurysmal dilatation of the thoracic aortic arch Status: Chronic Qualifiers: Aortic location: thoracic aorta Presence of rupture: without rupture Qualified Code(s): I71.2 - Thoracic aortic aneurysm, without rupture (5) Arthritis: -pain control as needed Status: Chronic (6) COPD (chronic obstructive pulmonary disease): -no evidence of acute exacerbation -supplemental oxygen as needed Status: Chronic Qualifiers: COPD type: unspecified COPD Qualified Code(s): J44.9 - Chronic obstructive pulmonary disease, unspecified Attestations Medical Necessity Statement*: Continue admission for assessment of management of sepsis, fever of unknown origin, possible hemorrhagic CVA, atrial fibrillation. Coding Level of Care Code Acute Customer Service Associate for [facility] Fwd Exam Comprehensive Diagnoses Sepsis A41.9 Sepsis acute organ dysfunction status: unspecified Sepsis type: sepsis due to unspecified organism Paroxysmal atrial fibrillation with RVR I48.0 Degenerative disc disease M51.37 Spinal region: lumbosacral Aortic aneurysm I71.2 Aortic location: thoracic aorta Presence of rupture: without rupture Arthritis M19.90 COPD (chronic obstructive pulmonary disease) J44.9 COPD type: unspecified COPD
[2020-02-28 15:45] LABS: ALBUMIN 2.4 g/dL (3.8-4.8); ALPHA 1 GLOBULIN 0.5 g/dL (0.2-0.3); ALPHA 2 GLOBULIN 0.8 g/dL (0.5-0.9); BETA 1 GLOBULIN 0.3 g/dL (0.4-0.6); BETA 2 GLOBULIN 0.3 g/dL (0.2-0.5); GAMMA GLOBULIN 0.6 g/dL (0.8-1.7)
--- NOTE | 2020-02-28 16:48 | PC.NURSE ---
Spoke with Dr Fernandez about continuing Cardizem drip instructions to call Dr robison for futher instructions. call placed to Dr robison instructions to stop Cardizem drip and continue metoprolol 12.5 as ordered
--- NOTE | 2020-02-28 17:40 | PC.NURSE ---
patient request for something to help him sleep tonight called Dr escobedo notified of patient request orders given for Trazodone 50mg at bedtime PRN
--- NOTE | 2020-02-28 18:51 | PC.NURSE ---
Received bedside report from Dana Bautista RN. Patient resting in bed watching tv. Denies needs at this time. No distress observed.
[2020-02-28] MEDS: trazodone 50 mg Tablet PO (21:18)
--- NOTE | 2020-02-28 21:26 | PC.NURSE ---
Addendum entered by Rosio Park RN 02/28/20 22:11: Informed Dr Andrade of possible audio and visual hallucinations. No orders received. Original Note: Patient assisted up to bathroom and did have small formed bm. Bed linen changed while patient up to bathroom. [employer] completed bed bath and gown change. Patient report seeing ants in the bathroom and also on his call light pointing to the holes in the intercom system. Inspected bathroom, patient's call light and bedding, no ants were seen. Reassured patient that appropriate people would be notified. Patient continues talking to self after staff leaves the room. Overheard patient talking about ants in pants and discussing with the experts while no one present in his room. Noted this to be happening during previous shifts. Patient reports not having eating much over several weeks and stated, I have not been up to a toilet in 3 weeks to have a bowel movement. Ibuprofen given as ordered to assisted in patient's temperature control. Patient expressed thanks.
[2020-02-29] VITALS (7 sets, daily range): BP systolic 116–129; BP diastolic 79–83; PULSE 77–111; RESP 16–33; TEMP 36.7–38.8; O2SAT 91–94
[2020-02-29] MEDS: doxycycline 100 MG in sodium chloride 0.9% (plus) 100 ML IV ×2 (00:31→13:09)
[2020-02-29] MEDS: piperacillin-tazobactam 3.375 GM in sodium chloride 0.9% (plus) 50 ML IV ×2 (02:03→11:51)
[2020-02-29] MEDS: sodium chloride 0.9% 1,000 ML 100 ML IV (02:04)
[2020-02-29] MEDS: ibuprofen 200 mg Tablet 400 MG PO (04:28)
[2020-02-29 06:06] LABS: Basophils # 0.1 10^3/uL (0.0-0.1); Basophils % 0.3 %; Eosinophils % 0.1 %; Lymphocytes % 15.5 %; Nucleated Red Blood Cells % 0 %
[2020-02-29 06:37] LABS: Alanine Aminotransferase 159 U/L (0-41); Albumin Level 2.1 g/dL (3.5-5.2); Alkaline Phosphatase 154 IU/L (40-130); Anion Gap 15.1 (5-19); Aspartate Amino Transferase 92 U/L (0-40); Blood Urea Nitrogen 11 mg/dL (8-23); Calcium 7.3 mg/dL (8.5-10.5); Carbon Dioxide 18 mmol/L (22-29); Chloride 100 mmol/L (98-107); Globulin 2.9 g/dL (1.3-4.6); Glomerular Filtration Rate 95.8 mL/min (90-130); Glucose 115 mg/dL (65-115); Osmolality Calculated 267 mOsm/kg (285-295); Potassium 3.1 mmol/L (3.5-5.1); Sodium 130 mmol/L (136-145); Total Bilirubin 1.2 mg/dL (0.15-1.2)
[2020-02-29 06:38] LABS: C Reactive Protein 84.5 mg/L (0.0-4.9)
[2020-02-29 06:43] LABS: Vancomycin Trough 4.6 ug/mL (10-15)
[2020-02-29 06:56] LABS: Hematocrit 32.1 % (42.0-52.0); Hemoglobin 11.2 g/dL (11.7-16.6); Lymphocytes # 2.5 10^3/uL (0.8-4.8); Mean Corpuscular HGB Conc 34.9 g/dL (30.0-36.0); Mean Corpuscular Hemoglobin 29.9 pg (28.0-34.0); Mean Corpuscular Volume 85.8 fL (80-94); Monocytes # 0.4 10^3/uL (0.2-0.9); Monocytes % 2.6 %; Neutrophils # 13.1 10^3/uL (1.8-7.7); Neutrophils % 80.4 %; Platelet Count 251 10^3/cmm (130-400); Red Blood Count 3.74 10^6/uL (4.1-5.3); Red Cell Distribution Width 15.7 % (12.1-15.1); White Blood Count 16.2 10^3/uL (4.0-10.0)
[2020-02-29] MEDS: vancomycin 1,000 MG in sodium chloride 0.9% 250 ML 250 MG IV ×2 (07:28→19:31)
--- NOTE | 2020-02-29 07:51 | PC.NURSE ---
patient reports to this nurse that he can see bugs and people in the mirror through the night denies seeing anything at this time however reports that he could not convince nurse last night that it was there
[2020-02-29] MEDS: fluticasone nasal spray 16gm Btl 2 SPRAY NASAL (09:04)
[2020-02-29] MEDS: oxymetazoline 0.05% Nasal Spray 15 mL 2 SPRAY NOSTRIL-B (09:06)
[2020-02-29 09:09] LABS: Slide Review Slide Review Perform
--- NOTE | 2020-02-29 11:15 | PC.NURSE ---
Dr escobedo at bedside for assessment and POC; plan to send patient to higher level of care patient in agreement although apprehensive patient stating I need to go home for a couple of hours then I will drive himself where ever he needs to go Dr escobedo educating patient on how unsafe it is for him to go home patient also reports to the hallucinations that he has been seeing in great detail; patient has been planning his escape plan all morning noting all exits while in [address]. 1:1 sitter has been placed for patient safety
[2020-02-29] MEDS: potassium chloride oral liq 20 mEq/15 mL UDC 40 MEQ PO (11:50)
--- NOTE | 2020-02-29 13:12 | PC.NURSE ---
patient is very tearful at this time wont talk with nurse about troubles will continue to monitor and provide nursing cares as indicated
--- NOTE | 2020-02-29 15:28 | P.CONIM_ITS ---
Providers/Reason for Consult Consulting Physican/Specialty*: Rolando Jang M.D. Psychiatry. Reason for Consult*: Hallucinations. Attending Physician: Dav Fernandez Psych Consult HPI History of Present Illness Nick is a 69-year-old white male who presented to the emergency room with a reported 3-week history of fevers and night sweats. Situation was complicated by the fact that he started reporting hallucinations to the treatment team. A psychiatric consult was initiated for exploration of that issue. Nick presents today reporting that he is not having any hallucinations because what he is observing is real. What he is reporting is that there are real individuals essentially inside his mirror and that is scaring him to . 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 Inside the mere and look to see what he would see. When his report of a computer inside the meter was question as the reflection of something with behind him on the wall he took quite a bit of offense to that. He denies any drugs of abuse, he denies any recent withdrawal syndromes including benzodiazepines considering for protracted withdrawal. He denies historical hallucinogenic use. 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 There was concern because a band in [place] had been procured for continued investigation of a infectious disease or other cause of these unremitting fevers and he had refused. He and I discussed the risks benefits and alternatives of a bed in [place] and he understood and agreed to proceed as is documented in this note. Psychiatric history: He denies any contributory psychiatric history of inpatient hospitalizations or long-term medication management. Substance abuse history: He denies significant alcohol substance abuse including benzodiazepines and alcohol for withdrawal phenomenon, or any illicit drugs recently. He denies smoking now or in the past but does endorse cannabis use but he denies any changes in frequency or the source or type of marijuana he has been using.. Family history: He denies any contributory information. Developmental history:. He denies any issues with or delivery, learned to walk and talk and met his developmental milestones on time, and he denies any significant speech therapy or learning disorders. Psychosocial history: He denies any issues with his upbringing or childhood. Endorses being a heterosexual with normal relationships throughout his life. Endorses a previous work history and a place to stay after discharge. 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 No abnormal mood. Cooperative with exam in mild distress. Speech was normal rate and volume. Mood described as okay affect slightly animated. Thought process organized. Thought content: Patient denied suicidal or homicidal ideation, there were no delusions reported or noted, he endorsed auditory and visual hallucinations which could possibly be at least predicated on visual illusions in the near as a reflection of delirium possibly. Attention and concentration were intact and memory appeared reliable but none were formally tested. He is alert and oriented x3. Insight and judgment are limited. Vitals/I&O/Wt Last Vital Signs Temp 101.8 F H 02/29/20 20:31 Pulse 111 H 02/29/20 20:31 Resp 16 02/29/20 20:31 BP 129/80 02/29/20 20:31 Pulse Ox 94 02/29/20 13:01 02/29/20 02/29/20 03/01/20 14:59 22:59 06:59 Intake Total 1370 / 1370 510 / 1880 Output Total 150 / 150 Balance 1220 / 1220 510 / 1730 Data NPU Micro: Micro: Microbiology 02/26/20 01:00 Gram Stain - Final Cerebrospinal Flu id CSF Culture - Lawanda l Microbiology 02/26/20 01:00 Cerebrospinal Fluid Gram Stain - Final 02/26/20 01:00 Cerebrospinal Fluid CSF Culture - Final A&P Assessment and plan (1) Hallucination: Status: Acute Additional A&P Information This is a 69-year-old white male with a recent history of new onset hallucinations without any contributory history except for him having new onset fever for 3 weeks. 1. Continue current medications. 2. Patient able to make informed consent and is open to transfer to [place]. He denies resistance to that plan. 3. No psychiatric cause noted for the hallucinations which could be illusions or possible delirium, though he lacks the waxing and waning element. 4. Agree with transfer to [place] for definitive evaluation of the fevers. Attestations NPU Medical Necessity Statement*: N/A. no need for inpatient psychiatric services. Coding Level of Care Code Acute Bridge Construction Inspector for Artur Delatorre Diagnoses Hallucination R44.3
[2020-02-29] MEDS: acetaminophen 325 mg Tablet 650 MG PO (16:39)
[2020-02-29 16:51] LABS: Quantiferon Mitogen 6.71 IU/mL; Quantiferon Nil 0.12 IU/mL; Quantiferon Plus TB2 0.02 IU/mL; Quantiferon TB Gold NEGATIVE (NEGATIVE)
--- NOTE | 2020-02-29 17:17 | P.PN_ITS ---
Subjective Subjective: Interval history: Remains in sinus rhythm. Little bit agitated since doxycycline IV is giving him burning and probable Medications: Reviewed: Yes Medication Review Details: Active Medications Generic Name Dose Route Start Last Admin Trade Name Sara PRN Reason Stop Dose Admin Acetaminophen 650 mg 02/26/20 02:47 02/26/20 03:54 Tylenol PO 650 mg Q4H PRN Administration FEVER Vancomycin HCl 1,5 00 mg/ 250 mls @ 250 mls /hr 02/26/20 07:00 02/26/20 06:50 Sodium Chloride IV 250 mls/hr Q24H DYAN Administration Protocol As Directed Piperacillin Sod/T azobactam 50 mls @ 12.5 mls /hr 02/26/20 03:00 02/26/20 03:45 Sod 3.375 gm/ So dium Chloride IV 12.5 mls/hr Q8H DYAN Administration Protocol As Directed Sodium Chloride 1,000 mls @ 75 ml s/hr 02/26/20 02:47 02/26/20 03:45 Sodium Chloride 0.9% IV 75 mls/hr .[id number] DYAN Administration Ondansetron HCl 4 mg 02/26/20 02:47 Zofran IVP Q6H PRN NAUSEA AND VOMITI NG No Known Allergies Allergy (Verified 02/24/20 09:56) Vitals/I&O/Wt Last Vital Signs Temp 98.6 F 02/29/20 13:01 Pulse 93 02/29/20 13:01 Resp 23 H 02/29/20 13:01 BP 123/81 02/29/20 13:01 Pulse Ox 94 02/29/20 13:01 02/29/20 02/29/20 02/29/20 06:59 14:59 22:59 Intake Total 1701.666 / 3751.666 1370 / 1370 Output Total 450 / 1400 150 / 150 Balance 1251.666 / 2351.666 1220 / 1220 Physical Exam Narrative: EXAM NARRATIVE: GENERAL: Patient is alert, awake and oriented x3. NECK: No jugular vein distension. HEENT: No cyanosis. No icterus. No pallor. HEART: Regular S1 and S2. No murmur, rub or gallop. LUNGS: Clear to auscultate bilaterally. ABDOMEN: Soft, nontender and nondistended. Positive bowel sounds. No guarding, rebound or tenderness. CENTRAL NERVOUS SYSTEM: Grossly nonfocal. EXTREMITIES: Lower extremities without edema bilaterally. Data : 02/29/20 05:53 02/29/20 05:53 Micro: Microbiology 02/26/20 01:00 Gram Stain - Final Cerebrospinal Fluid CSF Culture - Final 02/27/20 19:57 Blood Culture - Preliminary Blood NEGATIVE TO DATE 02/27/20 19:52 Blood Culture - Preliminary Blood NEGATIVE TO DATE 02/27/20 13:15 Blood Culture - Preliminary Blood NEGATIVE TO DATE 02/27/20 13:30 Blood Culture - Preliminary Blood NEGATIVE TO DATE A&P Assessment and plan (1) Paroxysmal atrial fibrillation with RVR: Currently in sinus rhythm. Continue medicine. Status: Acute (2) Sepsis: Continue IV antibiotics as per medicine. Status: Acute Qualifiers: Sepsis type: sepsis due to unspecified organism Sepsis acute organ dysfunction status: unspecified Qualified Code(s): A41.9 - Sepsis, unspecified organism Attestations Medical Necessity Statement*: Patient require continuation hospitalization for above defined care. 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
--- NOTE | 2020-02-29 17:41 | P.PN_ITS ---
Subjective Subjective: Interval history: 69 yo wm with a h/o fever of unknown origin whose w/u to date has been unrevealing. I was consulted to evaluate the head and neck for potential sources of infection. The patient denies any symptoms of the head and neck. Medications: Reviewed: Yes Vitals/I&O/Wt Last Vital Signs Temp 101.8 F H 02/29/20 17:39 Pulse 111 H 02/29/20 17:39 Resp 16 02/29/20 17:39 BP 129/80 02/29/20 17:39 Pulse Ox 94 02/29/20 13:01 02/29/20 02/29/20 02/29/20 06:59 14:59 22:59 Intake Total 1701.666 / 3751.666 1370 / 1370 Output Total 450 / 1400 150 / 150 Balance 1251.666 / 2351.666 1220 / 1220 Physical Exam Const: COMMON NORMALS: no acute distress and patient oriented x3 HENMT: COMMON NORMALS: normocephalic, hearing grossly normal bilaterally, Normal external nose present and oropharynx normal HEAD & SCALP: normocephalic FACE & SINUS: normal facial exam NOSE: Normal external nose present MOUTH: Normal oral and palatal mucosa present, lip normal, tongue normal and Normal salivary glands and ducts present Eye: COMMON NORMALS: conjunctivae normal CONJUNCTIVA: Yes conjunctivae normal Neck/C-Spine: COMMON NORMALS: full ROM, no lymphadenopathy and supple GENERAL: Yes normal visual inspection Neuro: COMMON NORMALS: patient oriented x3 Data : 02/29/20 05:53 02/29/20 05:53 Micro: Microbiology 02/26/20 01:00 Gram Stain - Final Cerebrospinal Fluid CSF Culture - Final 02/27/20 19:57 Blood Culture - Preliminary Blood NEGATIVE TO DATE 02/27/20 19:52 Blood Culture - Preliminary Blood NEGATIVE TO DATE 02/27/20 13:15 Blood Culture - Preliminary Blood NEGATIVE TO DATE 02/27/20 13:30 Blood Culture - Preliminary Blood NEGATIVE TO DATE A&P Additional A&P Information Impression: 69 yo wm with a h/o fever of unknown origin with no evidence of a head and neck source. The patient's fiberoptic exam was normal today. Plan: Please reconsult me for any changes in his head and neck symptoms. Attestations Medical Necessity Statement*: I was consulted to evaluate the patient's head and neck for possible sources of fever/infection. Procedures Procedure Narrative Flexible Fiberoptic Nasopharyngolaryngoscopy: the patient's nose was sprayed with an afrin/lidocaine mix; the flexible fiberoptic nasopharyngolaryngoscope was inserted into the patient's left nostril, and a systematic evaluation was performed of the patient's nasopharynx, oralpharynx, hypopharynx and larynx; there were no abnormalities noted, and the area of concern on the prior exam has resolved; the exam was normal and the patient tolerated the procedure well. Coding Level of Care Code Acute Sales Development Associate for Artur Delatorre
--- NOTE | 2020-02-29 17:51 | P.TS_ITS ---
Transfer Summary Providers Date of Admission: 02/25/20 23:55 Date of Discharge: 02/29/20 Attending Provider at Admission: Marjorie Andrade MD Attending Provider at Transfer: Dav Fernandez Anticipated Date of Transfer: Anticipated date of transfer: 02/29/20 Receiving Facility & Provider: Receiving Provider: [] Receiving facility: [] Diagnoses at Discharge Discharge Diagnosis (1) Paroxysmal atrial fibrillation with RVR: Status: Acute (2) Sepsis: Status: Acute Qualifiers: Sepsis type: sepsis due to unspecified organism Sepsis acute organ dysfunction status: unspecified Qualified Code(s): A41.9 - Sepsis, unspecified organism (3) Hepatic cyst: Status: Acute (4) Anorexia: Status: Acute Problem details: And weight loss (5) Night sweats: Status: Acute Problem details: And now recurrent fevers (6) Elevated C-reactive protein (CRP): Status: Acute (7) Hallucination: Status: Acute Problem details: First time today on 02/28 in the morning, seeing some scenes playing out in the meter which are not there, and he is convinced are real. Reports that tackers are trying to break into the meter. No hallucinations prior to this. We have kept one-to-one sitter with him in case he becomes confused and tries to wander off. (8) Lingular tonsillitis: Status: Acute Problem details: Incidentally noted enlarged on CT neck on admission (9) COPD (chronic obstructive pulmonary disease): Status: Chronic Problem details: Not in exacerbation. 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 Qualifiers: Aortic location: thoracic aorta Presence of rupture: without rupture Qualified Code(s): I71.2 - Thoracic aortic aneurysm, without rupture (11) Arthritis: Status: Chronic Reason for Visit Reason for Visit: fever/cough Abnormal ct findings Hospital Course Hospital Course: Pleasant 69-year-old gentleman was admitted on 02/24 due to history of malaise, feeling like he is hung over for the past 3-4 weeks (although he does not drink alcohol, but occasionally smokes marijuana), with poor appetite and oral intake, with weight loss of about 15 pounds in 3 weeks, and experiencing intermittent fevers, in the hospital up to 103.2 which so far have been noted daily. With noted leukocytosis mostly neutrophilic, today 16.2. Prior to admission he was seen in urgent care twice, with some pyuria noted in UA, for which he was treated with Bactrim for possible UTI, possible prostatitis, subsequently also seen by his PCP at [facility], and transition to ciprofloxacin. While in the hospital he has been maintained on Zosyn and vancomycin. Since he reported walking his dogs out in nature, doxycycline was added as well for possible tickborne illness. On presentation he was assessed with CT head and neck. He has history of thyroid biopsy about 2 years ago. He has also history of blocked submandibular salivary duct for which she had previously seen ENT. CT head showed possible scattered foci of demyelination, a nd questionable petechial hemorrhage in left cerebellar lobe, although this was not confirmed on subsequent MRI on 02/27 with normal MRA, and MRI showing scattered foci of moderate patchy supratentorial white matter changes, but thought more likely related to small vessel disease in a patient his age rather than demyelination. Incidentally noted mild central canal stenosis C3-C4, and please see full report for other incidental findings. On 02/24 he also was assessed with CT with contrast of chest abdomen pelvis, please see full reports, however, chest was unremarkable, and abdomen pelvis with finding of 30 mm lesion in the right hepatic lobe, suspected to be cavernous hemangioma, although may benefit from additional confirmation. He has been noted to have elevation of AST, ALT, today up to 92 and 159 respectively. These have been fairly steady over the time of hospitalization. T bili has been normal. Today for the first time alkaline phosphatase is mildly elevated at 154, previously normal. On CT abdomen pelvis gallbladder and biliary ducts appeared normal, no noted goal stones. Noted prostate hypertrophy. Blood cultures collected on presentation, and also CSF studies and cultures have not been helpful, without suggestion of acute infection. He was assessed by rapid flu testing, as well as for COVID-19 and both were negative. He was tested for HIV, acute hepatitis, and negative as well. Lyme antibodies have been negative, Ehrlichia and Rickettsia studies still pending. LDH found elevated at 299. CRP very high at 80 initially, repeat today 84.5. Strangely ESR is normal on 02/26 at 7. He was assessed by ENT due to lingular tonsil enlargement, and on initial CT question of possible lingular cancer could not be excluded, however, from ENT perspective no noted c ancer, and no findings to explain his condition. Possible narrowing of the supraglottic area, with concern for inflammatory etiology, possibly sometimes seen with granulomatosis with polyangiitis was noted. On reassessment today, however, reportedly this was no longer present. LUKASZ had been checked and is normal. ANCA has been requested, but no results so far. RF is normal at 12. SPEP was done and showing nonspecific hypogammaglobulinemia. UPEP and immunofixation have been requested today. Episode of paroxysmal A. fib with RVR, which initially was difficult to control even with IV metoprolol, Cardizem drip, and digoxin, subsequently converted to sinus which has been maintained, and he has remained on only low-dose beta-indira on follow-up with cardiology. Today for the first time he was also noted experiencing some hallucinations. He reported seeing some family playing out a vaudeville like show in the right side of his mirror when he started paying attention to it when he could not turn on his TV. He is convinced that it is real, and that some hackers or trying to hack into his mirror. We have kept a one-to-one sitter with him on the off chance that he may become confused and try to leave. On discussions with him he has been willingly agreeable to stay, however, and has not been under involuntary hold. He was assessed by psychiatry today. Given lack of explanati on of his persistent/recurrent fevers, possible ongoing sepsis, with unidentified source of infection, and despite empiric antibiotics, possibly underlying inflammatory condition, or may be even hematologic or other malignancy, he is requiring additional assessment and higher level of care, including infectious disease possibly rheumatology, possibly other assessment. Long discussion was had with him today regarding the extensive assessment he has received here, lack of definitive answer as to the cause of his presentation, and risks that may be present with any of the unidentified conditions. Due to this he was kindly accepted for additional assessment over at [facility] in [place], and has been agreeable to undergo additional evaluation and treatment there. I have discussed his condition and work-up so far with the accepting physician there Dr. Pérez. Please see follow-up results, and imaging studies for additional details. Physical Exam Const: COMMON NORMALS: no acute distress and patient oriented x3 HENMT: COMMON NORMALS: oropharynx normal Neck/C-Spine: COMMON NORMALS: no JVD Resp: COMMON NORMALS: normal respiratory effort and clear to auscultation bilaterally AUSCULTATION: clear to auscultation bilaterally Cardio: COMMON NORMALS: no JVD, regular rhythm, S1 normal heart sound present, S2 normal heart sound present and No murmurs present (Cardio) RHYTHM: regular rhythm HEART SOUNDS: S1 normal heart sound present and S2 normal heart sound present GI: COMMON NORMALS: Normal to inspection, nondistended, normoactive bowel sounds present, Soft to palpation and non-tender PALPATION: Yes Soft to palpation Extremity: COMMON NORMALS: no joint enlargement and no pedal edema Neuro: COMMON NORMALS: patient oriented x3 and moves all extremities Psych: OTHER: He is somewhat convinced that there is some untoward events going on in his mirror, including some factors, and a family with and and 4 children who have been playing out a show. Skin: COMMON NORMALS: no rashes or lesions noted GENERAL SKIN EXAM: no rashes or lesions noted TS Data Data Completed and Pending: Completed Studies During Hospitalization Category Date Time Status CT chest abd pel w con* Urgent Cat Scan 02/25/20 19:[address] head wo con* 7 0450 Stat Cat Scan 02/25/20 23:[address] neck w con* 70 491 Stat Cat Scan 02/25/20 23:06 Completed XR chest 1V celia ble [id number] Urgent Exams 02/25/20 18:31 Completed MR angio head wo con [id number] Routine MRI 02/28/20 14:30 Completed MR head wo con* 7 [id number] Routine MRI 02/28/20 14:30 Completed CV echo complete* [id number] Routine Ultrasound 02/28/20 07:00 Completed Pending at discharge Category Date Time Status Anti-Neutrophil C utoplasmic AB Rout ine Lab 02/27/20 13:30 Received Blood Culture Sta t Lab 02/25/20 18:50 Results Blood Culture Sta t Lab 02/27/20 13:15 Results Blood Culture Sta t Lab 02/27/20 19:57 Results Complete Blood Co unt w/Auto AM LABS Lab 03/01/20 04:00 Ordered Comprehensive Met abolic Panel AM LA BS Lab 03/01/20 04:00 Ordered Gamma Glutamyl Tr anspeptidase Routi ne Lab 02/29/20 05:53 Received Immunofixation Se rum Routine Lab 02/29/20 05:53 Received KAPPA/LAMBDA LIGH T FREE SERUM Routi ne Lab 02/29/20 05:53 Received Tick Panel Routin e Lab 02/27/20 04:30 Results Urine Protein Kim ctrop Random Routi ne Lab 02/29/20 15:00 Received US abdomen limite d [id number] Routine Ultrasound 03/01/20 07:00 Ordered Labs from last 24 hours 02/29/20 02/29/20 02/29/20 05:53 05:53 05:53 WBC 16.2 H RBC 3.74 L Hgb 11.2 L Hct 32.1 L MCV 85.8 MCH 29.9 MCHC 34.9 RDW 15.7 H Plt Count 251 MPV 11.0 H Neut % (Auto) 80.4 Lymph % (Auto) 15.5 [place] % (Auto) 2.6 Eos % (Auto) 0.1 Baso % (Auto) 0.3 Neut # (Auto) 13.1 H Lymph # (Auto) 2.5 [place] # (Auto) 0.4 Eos # (Auto) 0.0 Baso # (Auto) 0.1 Nucleated RBC % (a uto) 0 Nucleated RBCs # 0.0 Sodium 130 L Potassium 3.1 L Chloride 100 Carbon Dioxide 18 L Anion Gap 15.1 BUN 11 Creatinine 0.8 GFR Calculation 95.8 Glucose 115 Calculated Osmolal ity 267 L Calcium 7.3 L Total Bilirubin 1.2 AST 92 H ALT 159 H Alkaline Phosphata se 154 H C-Reactive Protein 84.5 H Total Protein 5.0 L Albumin 2.1 L Globulin 2.9 Vancomycin Trough TB (QFT) Gold In T ube TB Test (QFT) Nil TB Test (QFT) Huey gen TB Test Mitogen - Nil TB Test TB - Nil 02/29/20 02/27/20 05:53 13:30 WBC RBC Hgb Hct MCV MCH MCHC RDW Plt Count MPV Neut % (Auto) Lymph % (Auto) [place] % (Auto) Eos % (Auto) Baso % (Auto) Neut # (Auto) Lymph # (Auto) [place] # (Auto) Eos # (Auto) Baso # (Auto) Nucleated RBC % (a uto) Nucleated RBCs # Sodium Potassium Chloride Carbon Dioxide Anion Gap BUN Creatinine GFR Calculation Glucose Calculated Osmolal ity Calcium Total Bilirubin AST ALT Alkaline Phosphata se C-Reactive Protein Total Protein Albumin Globulin Vancomycin Trough 4.6 L TB (QFT) Gold In T ube Negative TB Test (QFT) Nil 0.12 TB Test (QFT) Huey gen 6.71 TB Test Mitogen - Nil 0.00 TB Test TB - Nil 0.02 Vitals: Last Vital Signs Temp 101.8 F H 02/29/20 17:39 Pulse 111 H 02/29/20 17:39 Resp 16 02/29/20 17:39 BP 129/80 02/29/20 17:39 Pulse Ox 94 02/29/20 13:01 TS Medications Medications Home Medications aspirin 325 mg tablet 325 mg PO BID PRN 02/17/20 [History Confirmed 02/25/20] sulfamethoxazole 800 mg-trimethoprim 160 mg tablet 1 tab PO BID 14 Days #28 tab 02/17/20 [Rx Confirmed 02/26/20] ciprofloxacin HCl [Cipro] 500 mg PO BID 02/26/20 [History Confirmed 02/26/20] Active Medications Acetaminophen (Tylenol) 650 mg PO Q4H PRN PRN Reason: FEVER Last Admin: 02/29/20 16:39 Dose: 650 mg Documented by: Fluticasone Propionate (Flonase) 2 spray NASAL DAILY DYAN Last Admin: 02/29/20 09:04 Dose: 2 spray Documented by: Piperacillin Sod/Tazobactam (Sod 3.375 gm/ Sodium Chloride) 50 mls @ 12.5 mls/hr IV Q8H DYAN; Protocol Last Admin: 02/29/20 11:51 Dose: 12.5 mls/hr Documented by: Doxycycline Hyclate 100 mg/ (Sodium Chloride) 100 mls @ 100 mls/hr IV Q12H DYAN; Protocol Last Admin: 02/29/20 13:09 Dose: 100 mls/hr Documented by: Sodium Chloride (Sodium Chloride 0.9%) 1,000 mls @ 100 mls/hr IV .Q10H DYAN Last Infusion: 02/29/20 13:11 Dose: Infused Documented by: Vancomycin HCl 1,000 mg/ (Sodium Chloride) 250 mls @ 250 mls/hr IV Q12H DYAN; Protocol Last Infusion: 02/29/20 08:30 Dose: Infused Documented by: Ibuprofen (Motrin) 400 mg PO TID PRN PRN Reason: MODERATE PAIN Last Admin: 02/29/20 04:28 Dose: 400 mg Documented by: Metoprolol Tartrate (Lopressor) 12.5 mg PO BID DYAN Last Admin: 02/29/20 09:04 Dose: Not Given Documented by: Ondansetron HCl (Zofran) 4 mg IVP Q6H PRN PRN Reason: NAUSEA AND VOMITING Oxymetazoline HCl (Afrin) 2 spray NOSTRIL-B Q12H PRN PRN Reason: NASAL CONGESTION Last Admin: 02/29/20 09:06 Dose: 2 spray Documented by: Trazodone HCl (Desyrel) 50 mg PO BEDTIME PRN PRN Reason: sleep Last Admin: 02/28/20 21:18 Dose: 50 mg Documented by: Discharge Plan Discharge Patient Disposition: Xfer Short-Term Hosp Condition: Stable Prescriptions: No Action aspirin 325 mg tablet 325 mg PO BID PRN (Reason: Pain, Mild) RF: 0 sulfamethoxazole-trimethoprim [Bactrim DS] 800-160 mg tablet 1 tab PO BID 14 Days Qty: 28 RF: 0 Cipro 500 mg Tablet 500 mg PO BID RF: 0 Transfer Attestations Time Spent in Transfer Care*: greater than 30 min Quality Metrics Clinical Quality Measures: During this hospital stay, did patient experience: None Coding Level of Care Code Acute 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
[2020-02-29] MEDS: metoprolol tartrate 25 mg Tablet 12.5 MG PO (18:05)
--- NOTE | 2020-02-29 20:29 | PC.NURSE ---
Patient transferred to [facility] in [place] by [facility] ambulance service. Report was called to Clarissa Maza RN by Dana Bautista RN prior to shift change. Patient denies any needs at this time. No distress observed.
[2020-02-29 22:02] LABS: Gamma Glutamyl Transferase 146 U/L (8-61)
[2020-03-01 13:11] LABS: KAPPA/LAMBDA LIGHT CHAINS FREE 0.72 (0.26-1.65); LAMBDA LIGHT CHAIN, FREE, SERU 37.6 mg/L (5.7-26.3)
[2020-03-01 16:00] LABS: Creatinine, Random Urine 122 mg/dL (20-320); Protein, Total, Random 150 mg/dL (5-25); Protein/Creatinine Ratio 1230 mg/g creat (22-128)
[2020-03-01 16:56] LABS: RMSF IGG NOT DETECTED; RMSF IGM NOT DETECTED
[2020-03-02 10:25] LABS: Albumin,Urine Random 12 %; Alpha-1-Globulins Urine Random 3 %; Alpha-2-Globulins Urine Random 34 %; Beta-Globulin,Urine Random 29 %; Gamma Globulin,Urine Random 23 %
[2020-03-02 22:15] LABS: E. Chaffeensis AB IGG <1:64; E. Chaffeensis AB IGM <1:20
[2020-03-03 12:26] LABS: ANCA Interp Negative (Negative)
== END 2020-02-29 20:33 | disposition short-term general hospital (02) | DRG 871 ==
LOC: ER 18:37 → MEDSURG 02-26 00:14 → ICU 02-26 01:13 → CSU 02-26 01:36
PROVIDERS: Family Medicine; Admitting Provider Internal Medicine; Emergency Provider Emergency Medicine; Visit Provider Internal Medicine
DX: A41.9 Sepsis, unspecified organism (principal); I61.9 Nontraumatic intracerebral hemorrhage, unspecified; Z68.1 Body mass index [BMI] 19.9 or less, adult; R61 Generalized hyperhidrosis; R63.0 Anorexia; R63.4 Abnormal weight loss; K76.89 Other specified diseases of liver; M51.37 Other intervertebral disc degeneration, lumbosacral region; I71.2 Thoracic aortic aneurysm, without rupture; M19.90 Unspecified osteoarthritis, unspecified site; J44.9 Chronic obstructive pulmonary disease, unspecified; K57.90 Diverticulosis of intestine, part unspecified, without perforation or abscess without bleeding; I48.0 Paroxysmal atrial fibrillation; D18.09 Hemangioma of other sites; F12.10 Cannabis abuse, uncomplicated; Z79.82 Long term (current) use of aspirin; M50.30 Other cervical disc degeneration, unspecified cervical region; Z11.59 Encounter for screening for other viral diseases
CPT/HCPCS: 12345; 36415; 70450; 70491; 70544; 70551; 71045; 71260; 74177; 80053; 80074; 80202; 80500; 81001; 82550; 82570; 82945; 82977; 83516; 83605; 83615; 83735; 83883; 84145; 84155; 84156; 84157; 84165; 84260; 84443; 85025; 85651; 86038; 86140; 86431; 86480; 86618; 86666; 86757; 87040; 87070; 87075; 87205; 87635; 87804; 87806; 89050; 93005; 93306; 96375; 99284; J0153; J1160; J2001; J2250; J2543; J3370; J3490; J7030; J7050; Q9967

== ENCOUNTER 2021-08-16 08:47 | Outpatient (CLI) | payer OTHER, SELFPAY ==
--- NOTE | 2021-08-16 08:56 | CT_ITS ---
WS: [id number] CT NECK WITH CONTRAST HISTORY: NONTOXIC SINGLE THYROID NODULE-PAIN IN THROAT TECHNIQUE: Contiguous 5 mm axial images are performed through the neck with intravenous contrast. Sag ittal and coronal reformats are also submitted. All CT scans at [facility] use at least one o f these dose optimization techniques: automated exposure control; mA and/or kV adjustment per patient size (includes targeted exams where dose is matched to clinical indication); or iterative reconstruc tion. CONTRAST: CONTRAST: Omnipaque 300; 95 mL IV. DLP: 510.18 mGy.cm COMPARISON: 02/25/2020 There is mixed air and soft tissue density in the vallecula bilaterally. This may be retained mucus s ecretions. Slightly greater on the RIGHT than the LEFT. This does not enhance significantly but shoul d be further evaluated by direct visualization. No abnormality at the vocal cord level. Ovoid enhancing soft tissue mass involving the lateral RIGHT tongue. Intensely enhancing mass measure s 1.9 x 0.7 cm and there is a small amount of adjacent air. This mass does abut the RIGHT mandible. T here is a focal area of periosteal reaction and dental caries adjacent to the enhancing mass. Very [place] btle area of enhancement within the floor of the mouth measures 0.8 cm on the LEFT. May be a small co ntralateral lymph node. This would be at level 1A. No level IB lymph nodes. Again noted is a soft tissue mass with calcification at the angle of the RIGHT mandible. Suspect this may be related to calcifications within a duct. These findings have been present since at least 2018 with mild progression. Beginning in the supraclavicular RIGHT neck are multiple soft tissue masses with variable density and enhancement. This confluent cluster of metastatic deposits or lymph nodes continues into the RIGHT u pper thorax at the apex and extends posterior to the trachea to abut the esophagus in the upper thora x. Largest necrotic lymph node just above the clavicle measures 3.3 x 2.4 cm. There is contiguous met astatic disease continuing into the RIGHT apex. Mass surrounding the proximal RIGHT subclavian artery with partial encasement of the RIGHT vertebral artery. Mass extends into the upper thorax with mild displacement of the esophagus to the LEFT of midline. This mass may actually invade the esophagus as there is loss of a normal fat plane. RIGHT apical mass measures 6.4 x 4.4 cm at its maximum. Continue d RIGHT paratracheal lymphadenopathy. Adenopathy extends anterior and posterior to the trachea and is partially encasing the SVC. Adenopathy continues to the hilar region but is incompletely visualized. Abnormal lymph nodes are also noted in the LEFT paratracheal region. There are multiple pulmonary nodules which were not present on the prior studies. The largest nodule is 1.6 cm in the LEFT upper lobe. Advanced cervical spondylosis. Visualized portions of the skull base demonstrate no abnormalities. Orbits and globes are within norm al limits. No soft tissue masses. Visualized paranasal sinuses and mastoid air cells are normal. CT/CT neck w con* [id number] IMPRESSION: 1. Significant change in appearance of the neck CT since the prior study 2019. 2. 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 Large bulky soft tissue masses. The largest at the RIGHT apex jose antonio ures 6.4 x 4.4 cm at its maximum diameter and extends to possibly invade the es ophagus posterior to the trachea. 3. 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 4. Numerous metastatic lung nodules, bilaterally within the upper lung blevins. 5. Intensely enhancing soft tissue mass in the RIGHT floor the mouth adjacent to an area of dental caries. This may be a small abscess versus neoplasm measur ing 1.9 x 0.7 cm. Small contralateral hyperemic lymph node at level 1A. 6. Increased soft tissue in the vallecula bilaterally may be debris in mucus b ut direct visualization should be obtained. Notified Turner Frye MD at 08/16/2021 11:58 AM. I was unable to speak direc tly to Dr. Frye. Message was left on the answering service to review the report as soon as possible.
[2021-08-16 09:48] LABS: Blood Urea Nitrogen 18 mg/dL (8-23)
[2021-08-16] MEDS: iohexol 300 mg/mL 100 mL Btl IV (10:29)
== END 2021-08-16 08:48 | disposition home or self-care (01) ==
LOC: RAD 08:51
PROVIDERS: PCP Family Medicine; Visit Provider Specialist
DX: E04.1 Nontoxic single thyroid nodule (principal); R07.0 Pain in throat; R91.8 Other nonspecific abnormal finding of lung field; D49.89 Neoplasm of unspecified behavior of other specified sites
CPT/HCPCS: 70491; 82565; 84520